=== PATIENT | male | born 1975 | race Caucasian/White ===

== ENCOUNTER 2017-10-07 13:19 | Emergency (ER) | payer MEDICARE, MEDICAID ==
[~2017-10-07] VITALS: Ht 177.8 cm; Wt 66.0 kg
[~2017-10-07 13:19] MED LIST: ARIP10TA17 PO; CHOL100046 PO; HALO5TAB PO; NICO-687 TD
[2017-10-07 13:30] VITALS: BP 137/83
== END 2017-10-07 16:00 | disposition left against medical advice (07) ==
LOC: ER 13:20
DX: M79.644 Pain in right finger(s) (principal); Z53.21 Procedure and treatment not carried out due to patient leaving prior to being seen by health care provider

== ENCOUNTER 2017-11-06 18:26 | Emergency (ER) | payer MEDICARE, MEDICAID ==
[~2017-11-06] VITALS: Ht 177.8 cm; Wt 77.3 kg
[~2017-11-06 18:26] MED LIST changes: +IBUP-1984 PO
[2017-11-06] MEDS ORDERED: OLANZapine **IM** 10 mg inj. IM ONE (23:00)
[2017-11-06 23:47] LABS: BASOPHILS % (AUTO) 0.1 % (0-1); EOSINOPHILS # (AUTO) 0.2 X10'3 (0-0.9); HEMATOCRIT 44.9 % (42.0-52.0); HEMOGLOBIN 15.4 g/dl (14.0-17.9); MEAN CORPUSCULAR HEMOGLOBIN 32.3 PG (27.0-31.0); MEAN CORPUSCULAR HGB CONC 34.3 % (33.0-36.5); MEAN CORPUSCULAR VOLUME 94.2 FL (78-98); MEAN PLATELET VOLUME 6.4 FL (7.4-10.4); MONOCYTES % (AUTO) 9.1 % (2-12); NEUTROPHILS # (AUTO) 5.5 X10'3 (1.8-7.7); NEUTROPHILS % (AUTO) 51.8 % (42-75); PLATELET COUNT 363 X10'3 (140-440); RED BLOOD COUNT 4.76 X10'6 (4.70-6.10); RED CELL DISTRIBUTION WIDTH 13.2 % (11.5-14.5); WHITE BLOOD COUNT 10.7 X10'3 (4.5-11.0)
[2017-11-07 00:04] LABS: ALANINE AMINOTRANSFERASE 48 U/L (12-78); ALBUMIN 3.7 G/DL (3.4-5.0); ALKALINE PHOSPHATASE 77 IU/L (46-116); ANION GAP 8 (8-16); ASPARTATE AMINO TRANSFERASE 20 U/L (10-37); BILIRUBIN,TOTAL 0.4 MG/DL (0.1-1.0); BLOOD UREA NITROGEN 12 MG/DL (7-18); BUN/CREATININE RATIO 15.6 (5.4-32.0); CHLORIDE 106 MMOL/L (99-107); CREATININE 0.77 MG/DL (0.60-1.10); GLUCOSE 144 MG/DL (70-104); POTASSIUM 3.1 MMOL/L (3.5-5.1); SODIUM 144 MMOL/L (135-145); TOTAL CARBON DIOXIDE 29.6 MMOL/L (24-32); TOTAL PROTEIN 7.3 G/DL (6.4-8.2); eGFR > 90 ML/MIN
[2017-11-07 00:16] LABS: ETHANOL < 0.010 GM/DL (0.0-0.010)
[2017-11-07] MEDS ORDERED: potassium Cl 20 mEq SR tablet PO ONE (01:15)
[2017-11-07 02:02] VITALS: BP 134/108
== END 2017-11-07 02:03 ==
LOC: ER 18:27
DX: S06.9X9A Unspecified intracranial injury with loss of consciousness of unspecified duration, initial encounter (principal); F29 Unspecified psychosis not due to a substance or known physiological condition; G89.29 Other chronic pain; F41.9 Anxiety disorder, unspecified; F31.9 Bipolar disorder, unspecified; F20.9 Schizophrenia, unspecified; Z86.19 Personal history of other infectious and parasitic diseases; F12.10 Cannabis abuse, uncomplicated; Z88.0 Allergy status to penicillin; Z88.8 Allergy status to other drugs, medicaments and biological substances; Z79.899 Other long term (current) drug therapy; Z56.0 Unemployment, unspecified; W22.8XXA Striking against or struck by other objects, initial encounter; Y93.89 Activity, other specified; Y92.89 Other specified places as the place of occurrence of the external cause; Y99.8 Other external cause status
CPT/HCPCS: 36415; 70450; 80053; 80320; 85025; 96372; 99285

== ENCOUNTER 2017-11-07 00:30 | Inpatient (IN) | payer MEDICARE, MEDICAID ==
[~2017-11-07] VITALS: Ht 177.8 cm; Wt 77.3 kg
[2017-11-07] MEDS ORDERED: haloperidol 5mg tablet PO ONE (02:05)
[2017-11-07] MEDS: LORazepam 1 MG tablet PO PRN ×3 (02:14→18:44)
[2017-11-07] MEDS ORDERED: haloperidol lactate 5mg/ml inj IM PRN (02:25)
[2017-11-07 02:30] VITALS: BP 129/81
[2017-11-07 08:00] VITALS: BP 92/74
[2017-11-07] MEDS ORDERED: haloperidol 5mg tablet PO PRN (10:45)
[2017-11-07] MEDS ORDERED: haloperidol 1mg tablet PO ONE (10:45)
[2017-11-07 11:06] LABS: CLARITY,URINE SLIGHTLY CLOUDY (Clear); COLOR,URINE YELLOW (Yellow); GLUCOSE, URINE NEGATIVE (Neg); KETONES,URINE NEGATIVE (Neg); LEUKOCYTE ESTERASE ,URINE NEGATIVE (Neg); NITRITES, URINE NEGATIVE (Neg); OCCULT BLOOD,URINE NEGATIVE (Neg); PH,URINE 6.5 (4.8-8.0); PROTEIN,URINE NEGATIVE (Neg)
[2017-11-07 11:11] LABS: UA COLLECTION TYPE CLN CATCH MIDSTREAM
[2017-11-07 11:12] LABS: AMORPHOUS URATES 2+; BACTERIA,URINE NONE SEEN /HPF (Neg); MUCUS STRANDS NONE SEEN /LPF (Neg); RBC,URINE NONE SEEN /HPF (0-2); SQUAMOUS EPITHELIAL CELL,UR NONE SEEN /LPF (FEW); WBC,URINE NONE SEEN /HPF (0-4)
[2017-11-07 11:21] LABS: URINE AMPHETAMINE SCREEN NEGATIVE (Neg); URINE BARBITUATE SCREEN NEGATIVE (Neg); URINE BENZODIAZEPINES SCREEN NEGATIVE (Neg); URINE CANNABINOID SCREEN POSITIVE (Neg); URINE COCAINE SCREEN NEGATIVE (Neg); URINE METHADONE SCREEN NEGATIVE (Neg); URINE OPIATE SCREEN NEGATIVE (Neg); URINE PHENCYCLIDINE SCREEN NEGATIVE (Neg)
[2017-11-07] MEDS ORDERED: haloperidol 1mg tablet PO SCH ×2 (13:00→20:00)
[2017-11-07] MEDS: potassium chloride 10mEq ER tablet PO SCH ×3 (16:10→17:46)
[2017-11-07 19:21] VITALS: BP 110/78
[2017-11-07] MEDS: haloperidol 5mg tablet PO SCH (20:06)
[2017-11-08] MEDS: nicotine 21mg patch - 24 hr TD SCH (07:43)
[2017-11-08] MEDS: haloperidol 5mg tablet PO SCH ×3 (07:44→20:07)
[2017-11-08 07:49] LABS: HEMOGLOBIN A1C 5.5 % (4.5-6.2)
[2017-11-08 07:56] LABS: CHOL/HDL RATIO 1.8 (0.00-4.99); CHOLESTEROL 94 MG/DL (0-200); HDL CHOLESTEROL 53 MG/DL (35-60); LDL CHOLESTEROL 34 MG/DL (50-100); TRIGLYCERIDES 60 MG/DL (20-135)
[2017-11-08 08:00] VITALS: BP 127/80
[2017-11-08] MEDS: potassium chloride 10mEq ER tablet PO SCH ×2 (08:02→17:30)
[2017-11-08] MEDS ORDERED: acetaminophen 325mg tablet PO PRN (08:20)
[2017-11-08] MEDS: LORazepam 1 MG tablet PO PRN (10:13)
[2017-11-08 19:38] LABS: ALANINE AMINOTRANSFERASE 46 U/L (12-78); ALBUMIN 3.4 G/DL (3.4-5.0); ALKALINE PHOSPHATASE 77 IU/L (46-116); ANION GAP 7 (8-16); ASPARTATE AMINO TRANSFERASE 21 U/L (10-37); BILIRUBIN,TOTAL 0.3 MG/DL (0.1-1.0); BLOOD UREA NITROGEN 17 MG/DL (7-18); BUN/CREATININE RATIO 15.2 (5.4-32.0); CHLORIDE 104 MMOL/L (99-107); CREATININE 1.12 MG/DL (0.60-1.10); GLUCOSE 81 MG/DL (70-104); POTASSIUM 4.6 MMOL/L (3.5-5.1); SODIUM 140 MMOL/L (135-145); TOTAL CARBON DIOXIDE 29.5 MMOL/L (24-32); TOTAL PROTEIN 6.8 G/DL (6.4-8.2); eGFR 72 ML/MIN
[2017-11-08 19:46] VITALS: BP 111/67
[2017-11-09] MEDS: haloperidol 5mg tablet PO SCH ×3 (07:48→20:10)
[2017-11-09] MEDS: nicotine 21mg patch - 24 hr TD SCH (07:50)
[2017-11-09 08:00] VITALS: BP 132/92
[2017-11-09] MEDS: potassium chloride 10mEq ER tablet PO SCH ×2 (08:30→17:30)
[2017-11-09 20:15] VITALS: BP 131/91
[2017-11-10 07:40] VITALS: BP 113/81
[2017-11-10] MEDS: potassium chloride 10mEq ER tablet PO SCH (08:30)
[2017-11-10] MEDS: haloperidol 5mg tablet PO SCH ×3 (08:32→20:35)
[2017-11-10] MEDS: nicotine 21mg patch - 24 hr TD SCH (08:33)
[2017-11-10 18:55] VITALS: BP 130/90
[2017-11-10 20:00] VITALS: BP 130/90
[2017-11-10 23:14] VITALS: BP 145/86
[2017-11-11 07:09] VITALS: BP 125/82
[2017-11-11] MEDS: haloperidol 5mg tablet PO SCH ×2 (08:32→12:37)
[2017-11-11] MEDS: nicotine 21mg patch - 24 hr TD SCH (08:35)
[2017-11-11] MEDS ORDERED: HALO5TAB PO (13:21)
[2017-11-11] MEDS ORDERED: CHOL100046 PO (13:21)
== END 2017-11-11 14:30 | disposition home or self-care (01) | DRG 885 ==
LOC: ADULT MH 00:30
PROVIDERS: ADMIT Psychiatry & Neurology Psychiatry; ATTEND Psychiatry & Neurology Psychiatry
DX: F23 Brief psychotic disorder (principal); S09.90XA Unspecified injury of head, initial encounter; R45.851 Suicidal ideations; E87.6 Hypokalemia; B19.20 Unspecified viral hepatitis C without hepatic coma; F41.9 Anxiety disorder, unspecified; X58.XXXA Exposure to other specified factors, initial encounter; F12.90 Cannabis use, unspecified, uncomplicated; F17.210 Nicotine dependence, cigarettes, uncomplicated; F31.9 Bipolar disorder, unspecified; Z91.19 Patient's noncompliance with other medical treatment and regimen; Z88.1 Allergy status to other antibiotic agents; Z88.0 Allergy status to penicillin; Z88.8 Allergy status to other drugs, medicaments and biological substances; Z79.899 Other long term (current) drug therapy
CPT/HCPCS: 36415; 80053; 80061; 80305; 81001; 83036; 83880; 87070; 99285; 99406; J1630

== ENCOUNTER 2018-01-11 10:50 | Emergency (ER) | payer MEDICARE, MEDICAID ==
[~2018-01-11] VITALS: Ht 177.8 cm; Wt 64.8 kg
[~2018-01-11 10:50] MED LIST changes: -ARIP10TA17 PO; -IBUP-1984 PO; -NICO-687 TD
[2018-01-11 10:51] VITALS: BP 141/100
[2018-01-11] MEDS ORDERED: LORazepam 1 MG tablet PO ONE (11:35)
== END 2018-01-11 12:31 | disposition home or self-care (01) ==
LOC: ER 10:50
DX: F32.9 Major depressive disorder, single episode, unspecified (principal); G89.29 Other chronic pain; F20.9 Schizophrenia, unspecified; F41.9 Anxiety disorder, unspecified; F12.90 Cannabis use, unspecified, uncomplicated; Z88.0 Allergy status to penicillin; Z56.0 Unemployment, unspecified; Z91.14 Patient's other noncompliance with medication regimen
CPT/HCPCS: 99283; 99284

== ENCOUNTER 2018-12-29 07:25 | Emergency (ER) | payer MEDICARE, MEDICAID ==
[~2018-12-29] VITALS: Ht 177.8 cm; Wt 75.0 kg
[2018-12-29 07:46] VITALS: BP 145/87
--- NOTE | 2018-12-29 08:01 | NUR ---
called charmaine case# [id number]
--- NOTE | 2018-12-29 08:25 | NUR ---
PT GIVEN FOOD BAG, ADDITIONAL JUICE, YOGURT, OK TO FEE AFTER NOTIFY JOVANI SPIVEY BG 74
[2018-12-29 08:34] LABS: BASOPHILS # (AUTO) 0.1 X10'3 (0-0.2); BASOPHILS % (AUTO) 0.7 % (0-1); EOSINOPHILS # (AUTO) 0.5 X10'3 (0-0.9); EOSINOPHILS % (AUTO) 4.7 % (0-6); HEMATOCRIT 40.7 % (42.0-52.0); HEMOGLOBIN 13.6 g/dl (14.0-17.9); LYMPHOCYTES # (AUTO) 2.4 X10'3 (1.1-4.8); LYMPHOCYTES % (AUTO) 21.1 % (21-51); MEAN CORPUSCULAR HEMOGLOBIN 30.9 PG (27.0-31.0); MEAN CORPUSCULAR HGB CONC 33.5 g/dL (33.0-36.5); MEAN CORPUSCULAR VOLUME 92.4 FL (78-98); MEAN PLATELET VOLUME 6.7 FL (7.4-10.4); MONOCYTES # (AUTO) 1.4 X10'3 (0-0.9); MONOCYTES % (AUTO) 12.2 % (2-12); NEUTROPHILS # (AUTO) 7.1 X10'3 (1.8-7.7); NEUTROPHILS % (AUTO) 61.3 % (42-75); PLATELET COUNT 422 X10'3 (140-440); RED CELL DISTRIBUTION WIDTH 14.3 % (11.5-14.5); WHITE BLOOD COUNT 11.6 X10'3 (4.5-11.0)
[2018-12-29 08:49] LABS: ALANINE AMINOTRANSFERASE 37 U/L (12-78); ALBUMIN 3.3 G/DL (3.4-5.0); ALBUMIN/GLOBULIN RATIO 0.9 (1.1-1.5); ALKALINE PHOSPHATASE 90 IU/L (46-116); ANION GAP 9 (8-16); ASPARTATE AMINO TRANSFERASE 25 U/L (10-37); BILIRUBIN,TOTAL 0.2 MG/DL (0.1-1.0); BLOOD UREA NITROGEN 12 MG/DL (7-18); BUN/CREATININE RATIO 18.2 (5.4-32.0); CALCIUM 8.4 MG/DL (8.5-10.1); CHLORIDE 108 MMOL/L (99-107); CREATININE 0.66 MG/DL (0.60-1.10); GLUCOSE 80 MG/DL (70-104); POTASSIUM 3.6 MMOL/L (3.5-5.1); SODIUM 143 MMOL/L (135-145); TOTAL CARBON DIOXIDE 26.4 MMOL/L (24-32); TOTAL PROTEIN 6.9 G/DL (6.4-8.2); eGFR > 90 ML/MIN
[2018-12-29 09:40] LABS: URINE AMPHETAMINE SCREEN NEGATIVE (Neg); URINE BARBITUATE SCREEN NEGATIVE (Neg); URINE BENZODIAZEPINES SCREEN NEGATIVE (Neg); URINE CANNABINOID SCREEN POSITIVE (Neg); URINE COCAINE SCREEN NEGATIVE (Neg); URINE METHADONE SCREEN NEGATIVE (Neg); URINE OPIATE SCREEN NEGATIVE (Neg); URINE PHENCYCLIDINE SCREEN NEGATIVE (Neg)
[2018-12-29] MEDS ORDERED: IBUP-1985 PO (09:51)
[2018-12-29] MEDS ORDERED: CEPH-572 PO (09:51)
--- NOTE | 2018-12-29 10:20 | NUR ---
CALLED [facility] KIM BEDSIDE DELIVERY TO FILL TWO PRESCRIPTIONS FOR DISCHARGE PT IS HOMELESS. PT ALREADY PROVIDED FOOD BAG, PT HAS APPROPRIATE CLOTHING FOR WEATHER.
--- NOTE | 2018-12-29 10:26 | NUR ---
BRENNA PICKED UP PRESCRIPTIONS TO FILL FOR PT.
== END 2018-12-29 11:22 | disposition home or self-care (01) ==
LOC: ER 07:25
DX: S02.31XA Fracture of orbital floor, right side, initial encounter for closed fracture (principal); S02.2XXA Fracture of nasal bones, initial encounter for closed fracture; S05.11XA Contusion of eyeball and orbital tissues, right eye, initial encounter; G89.29 Other chronic pain; F12.90 Cannabis use, unspecified, uncomplicated; F17.210 Nicotine dependence, cigarettes, uncomplicated; Z88.0 Allergy status to penicillin; Z88.1 Allergy status to other antibiotic agents; Z88.4 Allergy status to anesthetic agent; Z88.8 Allergy status to other drugs, medicaments and biological substances; Z79.2 Long term (current) use of antibiotics; Z79.899 Other long term (current) drug therapy; Z56.0 Unemployment, unspecified; Z59.0 Homelessness; Z87.440 Personal history of urinary (tract) infections; Z86.19 Personal history of other infectious and parasitic diseases; Z90.49 Acquired absence of other specified parts of digestive tract; Y08.89XA Assault by other specified means, initial encounter; Y93.89 Activity, other specified; Y92.89 Other specified places as the place of occurrence of the external cause; Y99.8 Other external cause status
CPT/HCPCS: 36415; 70450; 70486; 80053; 80305; 82948; 85025; 99284

== ENCOUNTER 2019-01-24 09:26 | Inpatient (IN) | payer MEDICARE, MEDICAID ==
[~2019-01-24] VITALS: Ht 177.8 cm; Wt 62.6 kg
[~2019-01-24 09:26] MED LIST changes: +IBUP-1985 PO
--- NOTE | 2019-01-24 09:30 | NUR ---
Admission Note: Patient is a 43 year old male admitted to [facility] due to psychosis Patient cannot formulate a safety plan. Patient has been homeless x 6 months with HX of Bipolar d/o and not taking medication. Patient taken to [facility] by his mother. Patient is acting bizarre and often not making sense. Patient denies SI/HI/AVH but appears to be responding to internal stimuli. When RN asked patient about his father patient started talking about "loaves and fishes". 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 Patient was treated at [facility] for lice with permethrin cream. Patient was given Ivermectin in [facility] with an additional dose to be given in 7 days. Patient has HX of Multiple compression fractures in his back. A mild pleural effustion and parechyen scarring in left lower lung lobe with cyst.
[2019-01-24] MEDS ORDERED: LORazepam 1 MG tablet PO PRN ×2 (09:45→17:25)
[2019-01-24] MEDS ORDERED: hydrOXYzine 25 MG tablet PO PRN (09:45)
[2019-01-24] MEDS ORDERED: loperamide 2mg capsule PO PRN (09:45)
[2019-01-24] MEDS ORDERED: acetaminophen 325mg tablet PO PRN (09:45)
[2019-01-24] MEDS ORDERED: Ivermectin 3mg tablet PO SCH (10:25)
[2019-01-24] MEDS ORDERED: haldol PO (10:59)
[2019-01-24] MEDS: Ivermectin 3mg tablet PO SCH (11:22)
[2019-01-24] MEDS: nicotine 21mg patch - 24 hr TD SCH (12:45)
--- NOTE | 2019-01-24 13:39 | NUR ---
Malnutrition consult. Patient weighed 68 kg on standing scale last 01/11/18, current weight is 62.6 kg on standing scale, a 12 lb (8%) loss in one year. Pending PO documentation. Per malnutrition risk screening patient was unable to verbalize diet at home. No edema. BMI is 19.8; will continue to follow and monitor PO Intake for assessment. Addendum: 01/24/19 at [address] Amended: Links added.
--- NOTE | 2019-01-24 16:28 | NUR ---
Nursing Progress Note: Legal hold: 5150 expires 01/27 @ 2818 Client on involuntary status for GD Report received from nurse with use of SBAR: Srinivasa, xerox machine mechanic Why are they here: Patient transferred from [facility] for psychosis. Patient has long HX of Bipolar d/o. Patient has been homeless for 6 months and noncompliant with medication. Patient is very thin and responding to internal stimuli. Patient is asked a question and patient talks about smiley faces, loaves and fishes, distrust, [place] and [place]. Patient has flight of ideas and acting bizarre. Patient is oriented to self and place but not date. Patient is unable to formulate a plan for food, clothing and group home. Patient's mother took patient to [facility]. Patient is a poor historian. Patient has a HX of compression fractures in his back, small pleural effusion to LL lung, and Increased platelets. Patient was treated with permetherine cream for lice yesterday at [facility]. Patient received Ivermectin today at [facility] with an additional dose ordered for 7 days. RN found lice and nits in patients scalp. No lice seen in groin area after thorough inspection by RN and Tech. Assessment What has happened this shift: Patient is in his room until tomorrow due to nits and lice in his scalp per Miko Her, infection control. Patient given snacks and meals in his room. Patient found several times in his room pacing and talking to himself. Patient has flight of ideas but is obeying commands and staying in his room. Patient did take a nap this afternoon. S/I, H/I: Patient denies A/VH: Patient denies but patient is responding to internal stimuli Sleep: took a nap ADL's: Independent Group attendance: No groups Were meds taken: none ordered Any med S/E: None reported or observed Mental Status Exam Appearance: took shower on arrival so clean and neat Eye contact: Poor, possible lazy eye Behavior: calm and obeys commands Speech: flight of ideas Mood: anxious at times Affect: flat Thought process: Disorganized, flight of ideas Thought Content: Unable to properly assess Cognition: Alert and confused. Insight: Poor Judgment: Poor Interventions PRN's: none Therapeutic interventions: 1:1 communication to include active listening and positive feedback, building therapeutic rapport. Maintained a safe and therapeutic environment, provided medication education and administration, q15 minute safety checks. Restraints/seclusion/emergency medication: N/A Justification of Continued Inpatient Treatment: Pt on 5150 for GD. Pt requires therapeutic intervention and medication management. Pt has no means for providing basic needs, food, group home and healthcare
[2019-01-24] MEDS ORDERED: haloperidol 5mg tablet PO PRN (17:25)
[2019-01-24] MEDS ORDERED: diphenhydrAMINE 25mg capsule PO PRN (17:25)
[2019-01-24 19:55] VITALS: BP 121/89
[2019-01-24] MEDS ORDERED: HALDOL 5 MG PO SCH (20:00)
[2019-01-24] MEDS: haloperidol 5mg tablet PO SCH (20:08)
[2019-01-24] MEDS: traZODone 50mg tablet PO SCH (20:08)
[2019-01-24] MEDS: diphenhydrAMINE 25mg capsule PO SCH (20:08)
--- NOTE | 2019-01-25 00:58 | NUR ---
Nursing Progress Note: Legal hold: 5150 expires 01/27 @ 1315 Client on involuntary status for GD Report received from nurse with use of SBAR: Srinivasa, compliance engineer Why are they here: Patient transferred from [facility] for psychosis. Patient has long HX of Bipolar d/o. Patient has been homeless for 6 months and noncompliant with medication. Patient is very thin and responding to internal stimuli. Patient is asked a question and patient talks about smiley faces, loaves and fishes, distrust, [place] and [place]. Patient has flight of ideas and acting bizarre. Patient is oriented to self and place but not date. Patient is unable to formulate a plan for food, clothing and penitentiary. Patient's mother took patient to [facility]. Patient is a poor historian. Patient has a HX of compression fractures in his back, small pleural effusion to LL lung, and Increased platelets. Patient was treated with permetherine cream for lice yesterday at [facility]. Patient received Ivermectin today at [facility] with an additional dose ordered for 7 days. RN found lice and nits in patients scalp. No lice seen in groin area after thorough inspection by RN and Tech. Assessment What has happened this shift: Patient is compliant staying in room. Not clear if pt understands why he is being asked to stay in room. Patient given snacks and meals in his room. Pt encouraged to eat he is very thin. Patient has flight of ideas borders on word salad at time. He does not answer even simple questions in a logical way. "Talked about unicorns on his face." Pt compliant with medications. S/I, H/I: Patient denies A/VH: Patient denies but patient is responding to internal stimuli Sleep: sleeping at this time. ADL's: Independent Group attendance: No groups Were meds taken: yes Any med S/E: None reported or observed Mental Status Exam Appearance: took shower on arrival so clean and neat Eye contact: Poor, possible lazy eye Behavior: calm and obeys commands Speech: flight of ideas Mood: anxious at times Affect: flat Thought process: Disorganized, flight of ideas Thought Content: Flight of ideas Cognition: Alert and confused. Insight: Poor Judgment: Poor Interventions PRN's: none Therapeutic interventions: 1:1 communication to include active listening and positive feedback, building therapeutic rapport. Maintained a safe and therapeutic environment, provided medication education and administration, q15 minute safety checks. Restraints/seclusion/emergency medication: N/A Justification of Continued Inpatient Treatment: Pt on 5150 for GD. Pt requires therapeutic intervention and medication management. Pt has no means for providing basic needs, food, penitentiary and healthcare
[2019-01-25] MEDS: acetaminophen 325mg tablet PO PRN (06:19)
[2019-01-25 07:57] VITALS: BP 115/82
[2019-01-25] MEDS: diphenhydrAMINE 25mg capsule PO SCH ×2 (08:00→20:46)
[2019-01-25] MEDS: nicotine 21mg patch - 24 hr TD SCH (08:18)
[2019-01-25] MEDS: haloperidol 5mg tablet PO SCH ×2 (08:18→20:45)
[2019-01-25 10:51] LABS: CHOL/HDL RATIO 2.5 (0.00-4.99); CHOLESTEROL 82 MG/DL (0-200); HDL CHOLESTEROL 33 MG/DL (35-60); LDL CHOLESTEROL 43 MG/DL (50-100); TRIGLYCERIDES 77 MG/DL (20-135)
[2019-01-25 10:52] LABS: HEMOGLOBIN A1C 5.6 % (4.5-6.2)
--- NOTE | 2019-01-25 11:59 | NUR ---
f/u for malnutrition consult: Pt with documented 100% PO intake on regular diet meeting nutrient needs. Pt with no documented edema or decrease in muscle strength. Pt currently does not meet criteria for malnutrition. Will continue to follow. Malnutrition consult. Patient weighed 68 kg on standing scale last 01/11/18, current weight is 62.6 kg on standing scale, a 12 lb (8%) loss in one year. Pending PO documentation. Per malnutrition risk screening patient was unable to verbalize diet at home. No edema. BMI is 19.8; will continue to follow and monitor PO Intake for assessment. Addendum: 01/25/19 at [address] Amended: Links added.
--- NOTE | 2019-01-25 15:41 | NUR ---
Nursing Progress Note: Legal hold: 5150 expires 01/27 @ 2780 Client on involuntary status for GD Report received from nurse with use of SBAR: Srinivasa, gluer and wedger Why are they here: Patient transferred from [facility] for psychosis. Patient has long HX of Schizophrenia d/o. Patient has been homeless for 6 months and noncompliant with medication. Patient is very thin and responding to internal stimuli. Patient is asked a question and patient talks about smiley faces, loaves and fishes, distrust, [place] and [place]. Patient has flight of ideas and acting bizarre. Patient is oriented to self and place but not date. Patient is unable to formulate a plan for food, clothing and alf. Patient's mother took patient to [facility]. Patient is a poor historian. Patient has a HX of compression fractures in his back, small pleural effusion to LL lung, and Increased platelets. Patient was treated with permetherine cream for lice yesterday at [facility]. Patient received Ivermectin today at [facility] with an additional dose ordered for 7 days. RN found lice and nits in patients scalp. No lice seen in groin area after thorough inspection by RN and Tech. Assessment What has happened this shift: Patient asleep at change of shift and up soon after. RN advised patient that he is allowed to be out of his room. Patient started walking around to group room and TV room. Patient keeps to himself. At breakfast RN assisted patient in making meal selections for future meals. Patient was disorganized and would sometime answer appropriately and sometimes say something completely unrelated. RN made most of patient's selections for him. At the end patient suddenly got irritated and told RN "I'm not a 1 year old." Patient is isolates and still showing signs of responding to internal stimuli. Patient appears to be making a little more sense today. Patient did not go to groups. S/I, H/I: Patient denies A/VH: Patient denies but patient is responding to internal stimuli Sleep: 8 hours ADL's: Independent Group attendance: No groups Were meds taken: Haldol. pt refused Benadryl Any med S/E: None reported or observed Mental Status Exam Appearance: took shower on arrival so clean and neat Eye contact: Poor, possible lazy eye Behavior: calm and obeys commands Speech: flight of ideas Mood: anxious at times Affect: flat Thought process: Disorganized, flight of ideas Thought Content: Unable to properly assess Cognition: Alert and confused. Insight: Poor Judgment: Poor Interventions PRN's: none Therapeutic interventions: 1:1 communication to include active listening and positive feedback, building therapeutic rapport. Maintained a safe and therapeutic environment, provided medication education and administration, q15 minute safety checks. Restraints/seclusion/emergency medication: N/A Justification of Continued Inpatient Treatment: Pt on 5150 for GD. Pt requires therapeutic intervention and medication management. Pt has no means for providing basic needs, food, alf and healthcare
[2019-01-25] MEDS: traZODone 50mg tablet PO SCH (20:47)
[2019-01-25 20:48] VITALS: BP 117/66
--- NOTE | 2019-01-25 21:00 | NUR ---
Pt refused to have Nicotine patch removed for the night. Pt states he will have cigarette cravings if removed. Pt was educated on that is could effect his sleeping and/or give him nightmares
--- NOTE | 2019-01-25 22:42 | NUR ---
Strabismus left eye Addendum: 01/25/19 at 2243 by Tammie Abad RN Amended: Links added.
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
[2019-01-26] MEDS: haloperidol 5mg tablet PO SCH ×2 (07:48→21:24)
[2019-01-26] MEDS: nicotine 21mg patch - 24 hr TD SCH (07:49)
[2019-01-26 08:00] VITALS: BP 112/80
[2019-01-26] MEDS: diphenhydrAMINE 25mg capsule PO SCH ×2 (08:00→21:24)
--- NOTE | 2019-01-26 15:15 | NUR ---
Nursing Progress Note: Legal hold: 5150 expires 01/27 @ 7270 Client on involuntary status for GD Report received from nurse with use of SBAR: Susan, operator cavity pump Why are they here: Patient transferred from [facility] for psychosis. Patient has long HX of Schizophrenia d/o. Patient has been homeless for 6 months and noncompliant with medication. Patient is very thin and responding to internal stimuli. Patient is asked a question and patient talks about smiley faces, loaves and fishes, distrust, [place] and [place]. Patient has flight of ideas and acting bizarre. Patient is oriented to self and place but not date. Patient is unable to formulate a plan for food, clothing and halfway. Patient's mother took patient to [facility]. Patient is a poor historian. Patient has a HX of compression fractures in his back, small pleural effusion to LL lung, and Increased platelets. Patient was treated with permetherine cream for lice yesterday at [facility]. Patient received Ivermectin today at [facility] with an additional dose ordered for 7 days. RN found lice and nits in patients scalp. No lice seen in groin area after thorough inspection by RN and Tech. Assessment What has happened this shift: Patient asleep at change of shift up just before breakfast. Patient gets a little agitated when asked questions and is disorganized. Patient keeps to himself. Patient is isolates and still showing signs of responding to internal stimuli. Patient is dressed in his own clothes. Patient went to morning group S/I, H/I: Patient denies A/VH: Patient denies but patient is responding to internal stimuli Sleep: 8 hours ADL's: Independent Group attendance: morning group Were meds taken: Haldol. pt refused Benadryl Any med S/E: None reported or observed Mental Status Exam Appearance: took shower on arrival so clean and neat Eye contact: Poor, possible lazy eye Behavior: calm and obeys commands Speech: flight of ideas Mood: anxious at times Affect: flat Thought process: Disorganized, flight of ideas Thought Content: Unable to properly assess Cognition: Alert and confused. Insight: Poor Judgment: Poor Interventions PRN's: none Therapeutic interventions: 1:1 communication to include active listening and positive feedback, building therapeutic rapport. Maintained a safe and therapeutic environment, provided medication education and administration, q15 minute safety checks. Restraints/seclusion/emergency medication: N/A Justification of Continued Inpatient Treatment: Pt on 5150 for GD. Pt requires therapeutic intervention and medication management. Pt has no means for providing basic needs, food, halfway and healthcare
[2019-01-26 19:00] VITALS: BP 111/79
[2019-01-26] MEDS: acetaminophen 325mg tablet PO PRN (19:17)
[2019-01-26] MEDS: traZODone 50mg tablet PO SCH (21:28)
--- NOTE | 2019-01-27 01:55 | NUR ---
Nursing Progress Note: Legal hold: 5150 expires 01/27 @ 2386 Client on involuntary status for GD Report received from nurse with use of SBAR: ONESIMO Huang Why are they here: Patient transferred from [facility] for psychosis. Patient has long HX of Schizophrenia d/o. Patient has been homeless for 6 months and noncompliant with medication. Patient is very thin and responding to internal stimuli. Patient is asked a question and patient talks about smiley faces, loaves and fishes, distrust, [place] and [place]. Patient has flight of ideas and acting bizarre. Patient is oriented to self and place but not date. Patient is unable to formulate a plan for food, clothing and custodial. Patient's mother took patient to [facility]. Patient is a poor historian. Patient has a HX of compression fractures in his back, small pleural effusion to LL lung, and Increased platelets. Patient was treated with Permetherine cream for lice yesterday at [facility]. Patient received Ivermectin today at [facility] with an additional dose ordered for 7 days. RN found lice and nits in patients scalp. No lice seen in groin area after thorough inspection by RN and Tech. Assessment What has happened this shift: Received patient sitting in T.V room. Patient wanted something to eat, stated he didnt get enough food for dinner. Pt was cooperative with the 1:1 assessment. Pt is unable to hold a thought, pt still very disorganized. Pt talked about Danilo [place] and how cough medicine and sleep aid reverses meth and keeps you from doing dumb things. I asked pt if he uses meth and he said on occasion. Pt made random thoughts about different people and then would laugh. At the same time pt denies any A/VH or SI. Pt doesnt feel he is depressed and reports his anxiety to be 4/10. Pt was medication compliant. Pt wanted to keep his nicotine patch on Exp possible side effects of patch during sleeping hours. 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 Reoriented to reality as needed. Maintained a safe and therapeutic environment, provided medication education and administration, q15 minute safety checks. Restraints/seclusion/emergency medication: N/A Justification of Continued Inpatient Treatment: Pt on 515 for GD. Pt requires therapeutic intervention and medication management. Pt has no means for providing basic needs, food, custodial and healthcare
[2019-01-27] MEDS: haloperidol 5mg tablet PO SCH ×2 (07:45→21:14)
[2019-01-27] MEDS: nicotine 21mg patch - 24 hr TD SCH (07:47)
[2019-01-27] MEDS: diphenhydrAMINE 25mg capsule PO SCH ×2 (07:49→20:00)
[2019-01-27 08:00] VITALS: BP 106/73
--- NOTE | 2019-01-27 16:01 | NUR ---
Nursing Progress Note: Legal hold: 5250 Client on involuntary status for GD Report received from nurse with use of SBAR: ONESIMO Pimentel Why are they here: Patient transferred from [facility] for psychosis. Patient has long HX of Schizophrenia d/o. Patient has been homeless for 6 months and noncompliant with medication. Patient is very thin and responding to internal stimuli. Patient is asked a question and patient talks about smiley faces, loaves and fishes, distrust, [place] and [place]. Patient has flight of ideas and acting bizarre. Patient is oriented to self and place but not date. Patient is unable to formulate a plan for food, clothing and snf. Patient's mother took patient to [facility]. Patient is a poor historian. Patient has a HX of compression fractures in his back, small pleural effusion to LL lung, and Increased platelets. Patient was treated with Permetherine cream for lice yesterday at [facility]. Patient received Ivermectin today at [facility] with an additional dose ordered for 7 days. RN found lice and nits in patients scalp. No lice seen in groin area after thorough inspection by RN and Tech. Assessment What has happened this shift: Pt up for breakfast in community room. Pt refused scheduled Benadryl, stated, "it makes me drowsy, I don't need it." Pt took his Haldol, was happy that it was a green pill. Pt stated that he needs to keep taking the green Haldols, not the white ones as "the white ones just get me high." Pt rated his depression at a 4/10, denied SI/HI/AH/VH, stated that only time he ever sees anything unusual is when he is on an acid trip. When asked pt why he was here, he replied that he went to the hospital because he had head lice. Pt asked if someone would come talk to him about housing, mentioned [employer] in [facility] then mentioned how he didn't like to have to take Invega shots. S/I, H/I: Pt denies A/VH: Patient denies Sleep: Pt stated he slept okay ADL's: Independent Group attendance: Yes Were meds taken: Yes but refused Benadryl Any med S/E: Pt states that Benadryl make him too drowsy Mental Status Exam Appearance: Clean, looks older than stated age Eye contact: Fair Behavior: Cooperative, isolative to self Speech: clear, audible Mood: Cooperative, calm Affect: Flat Thought process: linear, goal oriented Thought Content: Pt worried he may still have lice, focused on getting help with housing, only likes to take the green or blue Haldol pills, states he stopped taking his meds because the pharmacy gives him white Haldol pills. Cognition: A/O X 3 Insight: Poor Judgment: Poor Interventions PRN's: None Therapeutic interventions: 1:1 assessment, reality orientation, medication administration/education/monitoring, q15 minute safety checks. Restraints/seclusion/emergency medication: N/A Justification of Continued Inpatient Treatment: Pt is homeless, he has been off his medications, he needs medication adjustment and monitoring in a safe, therapeutic environment, he has no means for providing basic needs, food, snf and healthcare
[2019-01-27] MEDS: acetaminophen 325mg tablet PO PRN (18:43)
[2019-01-27] MEDS: traZODone 50mg tablet PO SCH (21:13)
--- NOTE | 2019-01-27 22:41 | NUR ---
Pt refused vital signs Addendum: 01/27/19 at 2244 by Tammie Abad RN Amended: Links added.
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
[2019-01-28 08:00] VITALS: BP 106/69
[2019-01-28] MEDS: diphenhydrAMINE 25mg capsule PO SCH ×2 (08:00→20:16)
[2019-01-28] MEDS: haloperidol 5mg tablet PO SCH ×2 (08:25→20:14)
[2019-01-28] MEDS: nicotine 21mg patch - 24 hr TD SCH (08:28)
--- NOTE | 2019-01-28 15:47 | NUR ---
Nursing Progress Note: Legal hold: 5250 expires 02/10 @ 0930 Client on involuntary status for GD Report received from nurse with use of SBAR: ONESIMO Pimentel Why are they here: Patient transferred from [facility] for psychosis. Patient has long HX of Schizophrenia d/o. Patient has been homeless for 6 months and noncompliant with medication. Patient is very thin and responding to internal stimuli. Patient is asked a question and patient talks about smiley faces, loaves and fishes, distrust, [place] and [place]. Patient has flight of ideas and acting bizarre. Patient is oriented to self and place but not date. Patient is unable to formulate a plan for food, clothing and usp. Patient's mother took patient to [facility]. Patient is a poor historian. Patient has a HX of compression fractures in his back, small pleural effusion to LL lung, and Increased platelets. Patient was treated with Permetherine cream for lice at [facility]. Patient received Ivermectin at [facility] with an additional dose ordered for 7 days. RN found lice and nits in patients scalp. No lice seen in groin area after thorough inspection by RN and Tech. Assessment What has happened this shift: Pt became agitated at breakfast today as the kitchen did not get his tray right. Sebastian him yelling/cussing loudly in hallway. PCT ordered him another tray and pt eventually calmed down. Pt is disorganized,pt was angry about his tray but verbalized, "you're not going to let me have a shave?!" Pt did not wish to shave. Pt is irritable and easily frustrated, continues to be depressed, denies all other symptoms though appears internally preoccupied at times. Pt refused Benadryl this morning, no longer wishes to take it in the morning, notified PA who D/c'd am dose. During morning med pass pt was angrily mumbling how people were being disrespectful by looking at his pockets instead of his eyes, stated to this nurse that I was doing it too. Reality orientation provided that this RN was not looking at his pockets and was in fact looking at his eyes. S/I, H/I: Pt denies A/VH: Pt denies Sleep: See sleep assessment notation ADL's: Independent Group attendance: Yes Were meds taken: Yes but refused Benadryl Any med S/E: None reported or observed Mental Status Exam Appearance: Clean, wearing green scrubs, looks older than stated age Eye contact: Fair, left eye laterally deviates Behavior: easily frustrated, suspicious, isolative to self Speech: Clear, low, mumbles at times Mood: irritable Affect: irritable, constricted Thought process: Disorganized, suspicious Thought Content: Pt believes people are being disrespectful by not looking him in the eye Cognition: A/O X 3 Insight: Poor Judgment: Poor Interventions PRN's: None Therapeutic interventions: 1:1 assessment, reality orientation, verbal de-escalation, active listening, medication administration/education/monitoring, encouragement to attend groups, Q15 minute safety checks. Restraints/seclusion/emergency medication: N/A Justification of Continued Inpatient Treatment: Pt requires therapeutic intervention and medication management. Pt is homeless and has no means for providing basic needs, food, usp and healthcare.
[2019-01-28] MEDS: acetaminophen 325mg tablet PO PRN (17:57)
[2019-01-28 19:00] VITALS: BP 127/87
[2019-01-28] MEDS: traZODone 50mg tablet PO SCH (20:14)
--- NOTE | 2019-01-28 22:59 | NUR ---
Nursing Progress Note: Legal hold: 5250 expires 02/10 @ 0930 Client on involuntary status for GD Report received from nurse with use of SBAR: ONESIMO Huang Why are they here: Patient transferred from [facility] for psychosis. Patient has long HX of Schizophrenia d/o. Patient has been homeless for 6 months and noncompliant with medication. Patient is very thin and responding to internal stimuli. Patient is asked a question and patient talks about smiley faces, loaves and fishes, distrust, [place] and [place]. Patient has flight of ideas and acting bizarre. Patient is oriented to self and place but not date. Patient is unable to formulate a plan for food, clothing and intermediate. Patient's mother took patient to [facility]. Patient is a poor historian. Patient has a HX of compression fractures in his back, small pleural effusion to LL lung, and Increased platelets. Patient was treated with Permetherine cream for lice yesterday at [facility]. Patient received Ivermectin today at [facility] with an additional dose ordered for 7 days. RN found lice and nits in patients scalp. No lice seen in groin area after thorough inspection by RN and Tech. Assessment What has happened this shift: The patient was in his room sleeping at shift change. He was later woken for 1:1 assessment and med pass. He mentions family that he appears to be angry with, but does not elaborate. The patient has poor eye contact and makes delusional statements. He does state that he's here because of his mother. The patient denies SI, AV/H, but continues to make delusional statements, and does not say anything meaningful. The patient took his HS meds minus the Benadryl, "I don't need that." He went to group room for a snack, then back to bed. S/I, H/I: Denies A/VH: Denies Sleep: "good" ADL's: Independent Group attendance: No groups at night. Were meds taken: Yes, except for Benadryl. Any med S/E: None reported or observed Mental Status Exam Appearance: Clean, wearing green scrubs, looks older than stated age Eye contact: Poor Behavior: Cooperative, isolative. Speech: Clear Mood: Cooperative, isolates to self. Affect: Flat Thought process: Disorganized Thought Content: Perseverates about discharge to [facility]. Cognition: Alert Insight: Poor Judgment: Poor Interventions PRN's: Therapeutic interventions: 1:1 communication to include active listening and positive feedback, building therapeutic rapport. Reoriented to reality as needed. Maintained a safe and therapeutic environment, provided medication education and administration, q15 minute safety checks. Restraints/seclusion/emergency medication: N/A Justification of Continued Inpatient Treatment: Pt requires therapeutic intervention and medication management. Pt is homeless and has no means for providing basic needs, food, intermediate and healthcare.
[2019-01-29 08:00] VITALS: BP 108/73
[2019-01-29] MEDS: haloperidol 5mg tablet PO SCH ×2 (08:39→20:19)
[2019-01-29] MEDS: nicotine 21mg patch - 24 hr TD SCH (08:40)
--- NOTE | 2019-01-29 15:50 | NUR ---
Nursing Progress Note: Legal hold: 5250 expires 02/10 @ 0930 Client on involuntary status for GD Report received from nurse with use of LATISHA and Benjamin ANGULO Why are they here: Patient transferred from [facility] for psychosis. Patient has long HX of Schizophrenia d/o. Patient has been homeless for 6 months and noncompliant with medication. Patient is very thin and responding to internal stimuli. Patient is asked a question and patient talks about smiley faces, loaves and fishes, distrust, [place] and [place]. Patient has flight of ideas and acting bizarre. Patient is oriented to self and place but not date. Patient is unable to formulate a plan for food, clothing and custodial. Patient's mother took patient to [facility]. Patient is a poor historian. Patient has a HX of compression fractures in his back, small pleural effusion to LL lung, and Increased platelets. Patient was treated with Permetherine cream for lice at [facility]. Patient received Ivermectin at [facility] with an additional dose ordered for 7 days. RN found lice and nits in patients scalp. No lice seen in groin area after thorough inspection by RN and Tech. Assessment What has happened this shift: Received pt in bed sleeping with normal respirations and in no distress. C/O still being hungry after breakfast and had a snack. Seems to be easily agitated by acceptable behavior of both staff and other clients, but is able to be redirected. Pt wanted to shave and was allowed to do so while [employer] observed. Pt is irritable and easily frustrated, continues to be depressed, denies all other symptoms though appears internally preoccupied at times. Reports the mission as not being an option for him and wants to go to [place] and thinks parole will let that happen. [place] better after a shave. S/I, H/I: Pt denies A/VH: Pt denies Sleep: 8 hrs last night ADL's: Independent Group attendance: Yes Were meds taken: Yes Any med S/E: None reported or observed Mental Status Exam Appearance: Clean, wearing green scrubs, looks older than stated age Eye contact: Fair, left eye laterally deviates Behavior: easily frustrated, suspicious, isolative to self Speech: Clear, low, mumbles at times Mood: irritable Affect: irritable, constricted Thought process: Disorganized, suspicious Thought Content: Pt believes people are being disrespectful by not looking him in the eye Cognition: A/O X 3 Insight: Poor Judgment: Poor Interventions PRN's: None Therapeutic interventions: 1:1 assessment, reality orientation, verbal de-escalation, active listening, medication administration/education/monitoring, encouragement to attend groups, Q15 minute safety checks. Restraints/seclusion/emergency medication: N/A Justification of Continued Inpatient Treatment: Pt requires therapeutic intervention and medication management. Pt is homeless and has no means for providing basic needs, food, custodial and healthcare.
[2019-01-29] MEDS: acetaminophen 325mg tablet PO PRN (19:03)
[2019-01-29 19:53] VITALS: BP 130/72
[2019-01-29] MEDS: traZODone 50mg tablet PO SCH (20:19)
[2019-01-29] MEDS: diphenhydrAMINE 25mg capsule PO SCH (20:37)
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
[2019-01-30] MEDS: nicotine 21mg patch - 24 hr TD SCH (07:36)
[2019-01-30] MEDS: haloperidol 5mg tablet PO SCH ×2 (07:36→20:36)
[2019-01-30 08:00] VITALS: BP 159/88
--- NOTE | 2019-01-30 11:01 | NUR ---
1:1 DISCHARGE PLANNING SW made TC to patient's mother at [phone], to confirm pt discharge planning. Pt's mother was unable to provide SW w/ pt's sister's phone number, however agreed to contact her via [employer]. SW requested confirmation of whether mother could have pt stay w/ her. Mother reports she cannot have pt stay w/ her due to her currently renting a room from a bachelor. DAVIDA Sapp
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
[2019-01-30] MEDS ORDERED: HALO5TAB PO (18:42)
[2019-01-30] MEDS ORDERED: TRAZ-218 PO (18:42)
[2019-01-30 20:00] VITALS: BP 116/78
[2019-01-30] MEDS: traZODone 50mg tablet PO SCH (20:36)
[2019-01-30] MEDS: diphenhydrAMINE 25mg capsule PO SCH (21:00)
--- NOTE | 2019-01-30 21:44 | NUR ---
Nursing Progress Note: Legal hold: 5250 expires 02/10 @ 0930 Client on involuntary status for GD Report received from nurse with use of LATISHA and ADELE Huang Why are they here: Patient transferred from [facility] for psychosis. Patient has long HX of Schizophrenia d/o. Patient has been homeless for 6 months and noncompliant with medication. Patient is very thin and responding to internal stimuli. Patient is asked a question and patient talks about smiley faces, loaves and fishes, distrust, [place] and [place]. Patient has flight of ideas and acting bizarre. Patient is oriented to self and place but not date. Patient is unable to formulate a plan for food, clothing and halfway. Patient's mother took patient to [facility]. Patient is a poor historian. Patient has a HX of compression fractures in his back, small pleural effusion to LL lung, and Increased platelets. Patient was treated with Permetherine cream for lice at [facility]. Patient received Ivermectin at [facility] with an additional dose ordered for 7 days. RN found lice and nits in patients scalp. No lice seen in groin area after thorough inspection by RN and Tech. Assessment What happened this shift: Pt was in his room laying down at change of shift. 1:1 assessment completed at bedside, Pt continues to say he his here because of lice, pt states he had a meeting today and adds "but it turned out all better." Pt c/o being hungry after dinner tonight and pt was offered evening snacks. Pt states he slept well last night, discussed removing nicotine patch with patient and possibility of nightmares, pt states "I had dreams but they were good dreams, I like having dreams because I never have dreams, I want to keep it on." Encouraged pt to remove patch again w/evening med pass and pt declined. Pt also declined benadryl stating "My trazadone helps me sleep, benadryl gives me sinus." S/I, H/I: Pt denies A/VH: Pt denies Sleep: None ADL's: Independent Group attendance: Yes Were meds taken: Yes Any med S/E: None reported or observed Mental Status Exam Appearance: disheveled and dressed wearing green scrubs and non skid socks. Encouraged pt to shower and pt states "I just had a shower tonight, I dont need another one." Eye contact: Good Behavior: pleasant, resisting a shower Speech: soft, normal rate and rhythm Mood: depressed Affect: blunted Thought process: linear Thought Content: stating case at hearing Cognition: A/O X 4 Insight: Fair Judgment: Fair Interventions PRN's: None Therapeutic interventions: 1:1 assessment, reality orientation, verbal de-escalation, active listening, medication administration/education/monitoring, encouragement to attend groups, Q15 minute safety checks. Restraints/seclusion/emergency medication: N/A Justification of Continued Inpatient Treatment: Pt requires therapeutic intervention and medication management. Pt is homeless and has no means for providing basic needs, food, halfway and healthcare.
[2019-01-31] MEDS: haloperidol 5mg tablet PO SCH (07:30)
[2019-01-31] MEDS: nicotine 21mg patch - 24 hr TD SCH (07:30)
[2019-01-31] MEDS: Ivermectin 3mg tablet PO SCH (07:32)
[2019-01-31 07:43] VITALS: BP 104/77
--- NOTE | 2019-01-31 07:45 | NUR ---
1:1 DISCHARGE PLANNING SW made TC to pt's mother to learn if pt could utilize her assistance to gain a bus ticket to [place], [place]. Mother agreed to assist him in accessing [facility] by 12:50 this day. DAVIDA Sapp
--- NOTE | 2019-01-31 10:50 | NUR ---
DISCHARGE NOTE The patient was discharged today at 1050. His mother and brother picked him up to give him a ride to the bus station. He will be traveling to [facility] where his sister lives. He plans to reside at the rescue [facility] in [place]. He left with all belongings, medications and instructions which he stated he understood. Denies any suicidal thoughts.
== END 2019-01-31 10:50 | disposition home or self-care (01) | DRG 885 ==
LOC: ADULT MH 09:26
PROVIDERS: ADMIT Psychiatry & Neurology Psychiatry; ATTEND Psychiatry & Neurology Psychiatry
DX: F20.0 Paranoid schizophrenia (principal); F15.950 Other stimulant use, unspecified with stimulant-induced psychotic disorder with delusions; Z72.89 Other problems related to lifestyle; B85.2 Pediculosis, unspecified; E11.9 Type 2 diabetes mellitus without complications; F12.10 Cannabis abuse, uncomplicated; F17.210 Nicotine dependence, cigarettes, uncomplicated; I10 Essential (primary) hypertension; Z62.810 Personal history of physical and sexual abuse in childhood; Z79.899 Other long term (current) drug therapy; Z88.0 Allergy status to penicillin; Z91.410 Personal history of adult physical and sexual abuse; Z59.0 Homelessness
CPT/HCPCS: 36415; 80061; 83036; 87070; Q0163

== ENCOUNTER 2019-05-22 19:17 | Emergency (ER) | payer MEDICARE, MEDICAID ==
[~2019-05-22] VITALS: Ht 177.8 cm; Wt 60.6 kg
[~2019-05-22 19:17] MED LIST changes: -CHOL100046 PO; +TRAZ-251 PO; +haldol PO
[2019-05-22] MEDS ORDERED: ondansetron 4mg rapidly disintigrating tab PO ONE (20:00)
[2019-05-22 20:20] LABS: BASOPHILS # (AUTO) 0.1 X10'3 (0-0.2); BASOPHILS % (AUTO) 0.8 % (0-1); EOSINOPHILS # (AUTO) 0.2 X10'3 (0-0.9); EOSINOPHILS % (AUTO) 2.6 % (0-6); HEMATOCRIT 40.5 % (42.0-52.0); HEMOGLOBIN 13.7 g/dl (14.0-17.9); LYMPHOCYTES # (AUTO) 2.7 X10'3 (1.1-4.8); LYMPHOCYTES % (AUTO) 28.9 % (21-51); MEAN CORPUSCULAR HEMOGLOBIN 31.2 PG (27.0-31.0); MEAN CORPUSCULAR HGB CONC 33.7 g/dL (33.0-36.5); MEAN CORPUSCULAR VOLUME 92.6 FL (78-98); MEAN PLATELET VOLUME 6.5 FL (7.4-10.4); MONOCYTES # (AUTO) 0.8 X10'3 (0-0.9); MONOCYTES % (AUTO) 8.2 % (2-12); NEUTROPHILS # (AUTO) 5.5 X10'3 (1.8-7.7); NEUTROPHILS % (AUTO) 59.5 % (42-75); PLATELET COUNT 404 X10'3 (140-440); RED BLOOD COUNT 4.37 X10'6 (4.70-6.10); RED CELL DISTRIBUTION WIDTH 14.3 % (11.5-14.5); WHITE BLOOD COUNT 9.2 X10'3 (4.5-11.0)
[2019-05-22 20:37] LABS: ALANINE AMINOTRANSFERASE 42 U/L (12-78); ALBUMIN 3.4 G/DL (3.4-5.0); ALBUMIN/GLOBULIN RATIO 0.9 (1.1-1.5); ALKALINE PHOSPHATASE 73 IU/L (46-116); ANION GAP 7 (8-16); ASPARTATE AMINO TRANSFERASE 25 U/L (10-37); BILIRUBIN,TOTAL 0.2 MG/DL (0.1-1.0); BLOOD UREA NITROGEN 13 MG/DL (7-18); BUN/CREATININE RATIO 12.5 (5.4-32.0); CALCIUM 8.7 MG/DL (8.5-10.1); CHLORIDE 112 MMOL/L (99-107); CREATININE 1.04 MG/DL (0.60-1.10); GLUCOSE 86 MG/DL (70-104); SODIUM 147 MMOL/L (135-145); TOTAL CARBON DIOXIDE 28.4 MMOL/L (24-32); TOTAL PROTEIN 7.1 G/DL (6.4-8.2); eGFR 78 ML/MIN
[2019-05-22] MEDS ORDERED: ONDA4TAB6 PO (21:00)
[2019-05-22 21:21] VITALS: BP 137/95
[2019-05-23] MEDS ORDERED: HALO5TAB PO (15:45)
[2019-05-23] MEDS ORDERED: TRAZ-251 PO (15:45)
== END 2019-05-22 21:22 | disposition home or self-care (01) ==
LOC: ER 19:18
DX: T67.5XXA Heat exhaustion, unspecified, initial encounter (principal); E86.0 Dehydration; G89.29 Other chronic pain; F41.9 Anxiety disorder, unspecified; F31.9 Bipolar disorder, unspecified; F20.9 Schizophrenia, unspecified; F12.90 Cannabis use, unspecified, uncomplicated; F15.90 Other stimulant use, unspecified, uncomplicated; Z88.0 Allergy status to penicillin; Z88.1 Allergy status to other antibiotic agents; Z88.8 Allergy status to other drugs, medicaments and biological substances; Z79.899 Other long term (current) drug therapy; Z90.49 Acquired absence of other specified parts of digestive tract; Z56.0 Unemployment, unspecified; Z59.0 Homelessness; X30.XXXA Exposure to excessive natural heat, initial encounter; Y93.89 Activity, other specified; Y92.89 Other specified places as the place of occurrence of the external cause; Y99.8 Other external cause status
CPT/HCPCS: 36415; 80053; 85025; 99283; J2405

== ENCOUNTER 2019-05-23 09:25 | Emergency (ER) | payer MEDICARE, MEDICAID ==
[~2019-05-23] VITALS: Ht 177.8 cm; Wt 60.0 kg
[~2019-05-23 09:25] MED LIST changes: +ONDA4TAB6 PO
--- NOTE | 2019-05-23 09:44 | NUR ---
this patient has not verbalized any Suicidal Ideation. He just is having a [facility]"
[2019-05-23 10:05] VITALS: BP 120/72
[2019-05-23] MEDS ORDERED: TRAZ-251 PO (15:45)
[2019-05-23] MEDS ORDERED: HALO5TAB PO (15:45)
== END 2019-05-23 10:07 | disposition home or self-care (01) ==
LOC: ER 09:26
DX: Z00.8 Encounter for other general examination (principal); G89.29 Other chronic pain; F41.9 Anxiety disorder, unspecified; F31.9 Bipolar disorder, unspecified; F20.9 Schizophrenia, unspecified; F12.90 Cannabis use, unspecified, uncomplicated; F15.90 Other stimulant use, unspecified, uncomplicated; Z90.49 Acquired absence of other specified parts of digestive tract; Z98.890 Other specified postprocedural states; Z56.0 Unemployment, unspecified; Z59.0 Homelessness; Z88.0 Allergy status to penicillin; Z88.1 Allergy status to other antibiotic agents; Z88.8 Allergy status to other drugs, medicaments and biological substances; Z79.899 Other long term (current) drug therapy
CPT/HCPCS: 99281

== ENCOUNTER 2019-05-23 12:12 | Emergency (ER) | payer MEDICARE, MEDICAID ==
[~2019-05-23] VITALS: Ht 177.8 cm; Wt 77.3 kg
[2019-05-23 13:14] LABS: URINE AMPHETAMINE SCREEN NEGATIVE (Neg); URINE BARBITUATE SCREEN NEGATIVE (Neg); URINE BENZODIAZEPINES SCREEN NEGATIVE (Neg); URINE CANNABINOID SCREEN POSITIVE (Neg); URINE COCAINE SCREEN NEGATIVE (Neg); URINE METHADONE SCREEN NEGATIVE (Neg); URINE OPIATE SCREEN POSITIVE (Neg); URINE PHENCYCLIDINE SCREEN NEGATIVE (Neg)
[2019-05-23 13:19] LABS: BASOPHILS # (AUTO) 0.1 X10'3 (0-0.2); BASOPHILS % (AUTO) 0.7 % (0-1); EOSINOPHILS # (AUTO) 0.3 X10'3 (0-0.9); EOSINOPHILS % (AUTO) 3.6 % (0-6); HEMOGLOBIN 13.4 g/dl (14.0-17.9); LYMPHOCYTES # (AUTO) 2.6 X10'3 (1.1-4.8); LYMPHOCYTES % (AUTO) 29.3 % (21-51); MEAN CORPUSCULAR HEMOGLOBIN 31.2 PG (27.0-31.0); MEAN CORPUSCULAR HGB CONC 33.5 g/dL (33.0-36.5); MEAN PLATELET VOLUME 6.7 FL (7.4-10.4); MONOCYTES # (AUTO) 0.8 X10'3 (0-0.9); MONOCYTES % (AUTO) 9.1 % (2-12); NEUTROPHILS # (AUTO) 5.1 X10'3 (1.8-7.7); NEUTROPHILS % (AUTO) 57.3 % (42-75); PLATELET COUNT 402 X10'3 (140-440); RED CELL DISTRIBUTION WIDTH 14.1 % (11.5-14.5); WHITE BLOOD COUNT 8.9 X10'3 (4.5-11.0)
[2019-05-23 13:21] LABS: ALANINE AMINOTRANSFERASE 39 U/L (12-78); ALBUMIN 3.2 G/DL (3.4-5.0); ALBUMIN/GLOBULIN RATIO 0.9 (1.1-1.5); ALKALINE PHOSPHATASE 72 IU/L (46-116); ANION GAP 10 (8-16); ASPARTATE AMINO TRANSFERASE 19 U/L (10-37); BILIRUBIN,TOTAL 0.1 MG/DL (0.1-1.0); BLOOD UREA NITROGEN 15 MG/DL (7-18); CALCIUM 8.4 MG/DL (8.5-10.1); CHLORIDE 107 MMOL/L (99-107); CREATININE 0.75 MG/DL (0.60-1.10); GLUCOSE 88 MG/DL (70-104); POTASSIUM 3.9 MMOL/L (3.5-5.1); SODIUM 143 MMOL/L (135-145); TOTAL PROTEIN 6.7 G/DL (6.4-8.2); eGFR > 90 ML/MIN
[2019-05-23 13:32] LABS: ETHANOL < 0.010 GM/DL (0.0-0.010)
[2019-05-23 13:33] LABS: ACETAMINOPHEN < 2.0 UG/ML (10-30)
--- NOTE | 2019-05-23 15:08 | NUR ---
Note keshia in ED - 05/23/19 at 1715 by OLAMIDE PT STATES, IM OUT OF MEDS, THEY WERE LOST OR STOLEN. WHEN ASKED WHAT YOUR PLAN IS? STATES, I JUST WANT TO DRIVE AWAY AND NEVER COME BACK.
[2019-05-23] MEDS ORDERED: HALO5TAB PO (15:45)
[2019-05-23] MEDS ORDERED: TRAZ-251 PO (15:45)
[2019-05-23] MEDS ORDERED: LORazepam 2 mg/ml vial IM ONE ×2 (16:20)
[2019-05-23] MEDS ORDERED: diphenhydrAMINE 50 mg/ml inj IM ONE (16:20)
[2019-05-23] MEDS ORDERED: haloperidol lactate 5mg/ml inj ONE (16:24)
--- NOTE | 2019-05-23 16:28 | NUR ---
PT ACTING OUT THROWING TISSUE, HALLUCINATING, STATING QUITE STEELING THE CHILDREN, PT BELLIGERANT, YELLING OUT, INFORMED DR. HO. PLEASE SEE NEW ORDERS.
[2019-05-23] MEDS ORDERED: traZODone 50mg tablet PO SCH (21:00)
--- NOTE | 2019-05-23 21:28 | NUR ---
pt continues to sleep, snores loud
[2019-05-24 05:53] VITALS: BP 110/73
[2019-05-24] MEDS ORDERED: haloperidol 5mg tablet PO SCH (08:00)
== END 2019-05-24 10:37 | disposition home or self-care (01) ==
LOC: ER 12:13
DX: F70 Mild intellectual disabilities (principal); G89.29 Other chronic pain; F41.9 Anxiety disorder, unspecified; F31.9 Bipolar disorder, unspecified; F20.9 Schizophrenia, unspecified; F12.90 Cannabis use, unspecified, uncomplicated; F15.90 Other stimulant use, unspecified, uncomplicated; Z56.0 Unemployment, unspecified; Z59.0 Homelessness; Z90.49 Acquired absence of other specified parts of digestive tract; Z98.890 Other specified postprocedural states; Z88.0 Allergy status to penicillin; Z88.1 Allergy status to other antibiotic agents; Z88.8 Allergy status to other drugs, medicaments and biological substances; Z79.899 Other long term (current) drug therapy
CPT/HCPCS: 36415; 80053; 80305; 80320; 80329; 84443; 85025; 96372; 99285; J1200; J1630; J2060

== ENCOUNTER 2020-01-17 13:46 | Emergency (ER) | payer MEDICARE, MEDICAID ==
[~2020-01-17] VITALS: Ht 177.8 cm; Wt 70.5 kg
[~2020-01-17 13:46] MED LIST changes: -IBUP-1985 PO; -ONDA4TAB6 PO; -haldol PO
[2020-01-17 13:47] VITALS: BP 143/84
--- NOTE | 2020-01-17 13:51 | NUR ---
Pt in ER bay for screening, physical exam deferred to Provider. See Provider physical assessment.
== END 2020-01-17 15:08 | disposition home or self-care (01) ==
LOC: ER 13:46
DX: B85.0 Pediculosis due to Pediculus humanus capitis (principal); G89.29 Other chronic pain; F12.90 Cannabis use, unspecified, uncomplicated; F15.90 Other stimulant use, unspecified, uncomplicated; Z59.0 Homelessness; Z56.0 Unemployment, unspecified; Z90.49 Acquired absence of other specified parts of digestive tract; Z88.0 Allergy status to penicillin; Z88.1 Allergy status to other antibiotic agents; Z88.4 Allergy status to anesthetic agent
CPT/HCPCS: 99284

== ENCOUNTER 2020-01-19 13:58 | Inpatient (IN) | payer MEDICARE, MEDICAID ==
[~2020-01-19] VITALS: Ht 177.8 cm; Wt 60.6 kg
[2020-01-19] MEDS ORDERED: acetaminophen 325mg tablet PO PRN (14:30)
[2020-01-19] MEDS ORDERED: hydrOXYzine 25 MG tablet PO PRN (14:30)
[2020-01-19] MEDS ORDERED: loperamide 2mg capsule PO PRN (14:30)
[2020-01-19] MEDS ORDERED: LORazepam 1 MG tablet PO PRN (14:30)
[2020-01-19] MEDS ORDERED: diphenhydrAMINE 25mg capsule PO PRN (14:30)
[2020-01-19 15:00] VITALS: BP 148/107
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
[2020-01-19] MEDS ORDERED: OLAN5TAB3 PO (15:42)
[2020-01-19 19:00] VITALS: BP 107/56
[2020-01-19] MEDS: traZODone 50mg tablet PO PRN (20:03)
[2020-01-19] MEDS: OLANZAPINE 5 MG TABLET PO SCH (20:03)
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
[2020-01-20 07:30] VITALS: BP 124/67
[2020-01-20] MEDS: OLANZAPINE 5 MG TABLET PO SCH ×2 (07:45→20:10)
[2020-01-20] MEDS: lactose-reduced food (Ensure Enlive) - 237ml bottle PO SCH ×3 (08:00→18:12)
[2020-01-20 08:07] LABS: CHOLESTEROL 106 MG/DL (0-200); HDL CHOLESTEROL 54 MG/DL (35-60); LDL CHOLESTEROL 42 MG/DL (50-100); TRIGLYCERIDES 66 MG/DL (20-135)
[2020-01-20] MEDS ORDERED: FLU VACC QS2019-20 36MOS UP/PF 60 MCG/0.5 ML SYRINGE IMVAC ONE (09:00)
[2020-01-20] MEDS: nicotine 21mg patch - 24 hr TD SCH (13:39)
[2020-01-20 16:15] VITALS: BP 109/81
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
[2020-01-20 19:00] VITALS: BP 105/70
[2020-01-20] MEDS: traZODone 50mg tablet PO PRN (20:10)
[2020-01-20] MEDS ORDERED: ipratropium/albuterol 3ml nebule NEB PRN (21:55)
[2020-01-20] MEDS: acetaminophen 325mg tablet PO PRN (22:43)
[2020-01-20] MEDS: levoFLOXACIN 750MG TABLET PO SCH (22:44)
[2020-01-20 23:45] LABS: ALANINE AMINOTRANSFERASE 33 U/L (12-78); ALBUMIN 2.8 G/DL (3.4-5.0); ALBUMIN/GLOBULIN RATIO 0.7 (1.1-1.5); ALKALINE PHOSPHATASE 93 IU/L (46-116); ANION GAP 7 (8-16); ASPARTATE AMINO TRANSFERASE 22 U/L (10-37); BILIRUBIN,TOTAL 0.1 MG/DL (0.1-1.0); BLOOD UREA NITROGEN 26 MG/DL (7-18); CALCIUM 8.9 MG/DL (8.5-10.1); CHLORIDE 105 MMOL/L (99-107); CREATININE 0.84 MG/DL (0.60-1.10); GLUCOSE 125 MG/DL (70-104); MAGNESIUM 2.1 MG/DL (1.5-2.4); PHOSPHORUS 3.9 MG/DL (2.3-4.5); SODIUM 141 MMOL/L (135-145); TOTAL CARBON DIOXIDE 28.7 MMOL/L (24-32); eGFR > 90 ML/MIN
[2020-01-20 23:57] LABS: BASOPHILS # (AUTO) 0.1 X10'3 (0-0.2); EOSINOPHILS # (AUTO) 0.5 X10'3 (0-0.9); EOSINOPHILS % (AUTO) 4.6 % (0-6); HEMATOCRIT 38.6 % (42.0-52.0); HEMOGLOBIN 12.7 g/dl (14.0-17.9); LYMPHOCYTES # (AUTO) 3.3 X10'3 (1.1-4.8); LYMPHOCYTES % (AUTO) 31.1 % (21-51); MEAN CORPUSCULAR HEMOGLOBIN 29.8 PG (27.0-31.0); MEAN CORPUSCULAR HGB CONC 32.8 g/dL (33.0-36.5); MEAN CORPUSCULAR VOLUME 90.9 FL (78-98); MEAN PLATELET VOLUME 6.8 FL (7.4-10.4); MONOCYTES # (AUTO) 1.3 X10'3 (0-0.9); MONOCYTES % (AUTO) 12.7 % (2-12); NEUTROPHILS # (AUTO) 5.3 X10'3 (1.8-7.7); NEUTROPHILS % (AUTO) 50.6 % (42-75); PLATELET COUNT 506 X10'3 (140-440); RED BLOOD COUNT 4.25 X10'6 (4.70-6.10); RED CELL DISTRIBUTION WIDTH 14.3 % (11.5-14.5); WHITE BLOOD COUNT 10.5 X10'3 (4.5-11.0)
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
[2020-01-21 08:00] VITALS: BP 107/75
[2020-01-21] MEDS: lactose-reduced food (Ensure Enlive) - 237ml bottle PO SCH ×2 (08:08→13:52)
[2020-01-21] MEDS: nicotine 21mg patch - 24 hr TD SCH (08:08)
[2020-01-21] MEDS: OLANZAPINE 5 MG TABLET PO SCH ×2 (08:08→20:27)
[2020-01-21] MEDS: haloperidol 5mg tablet PO PRN (08:28)
[2020-01-21] MEDS ORDERED: Permethrin 1% 59ml topical rinse TP ONE (08:35)
[2020-01-21 09:52] LABS: HIV ANTIBODY 1&2 RAPID NON-REACTIVE (Neg)
[2020-01-21] MEDS: levoFLOXACIN 750MG TABLET PO SCH (11:19)
[2020-01-21 11:37] LABS: CLARITY,URINE CLEAR (Clear); COLOR,URINE YELLOW (Yellow); GLUCOSE, URINE NEGATIVE (Neg); KETONES,URINE TRACE mg/dl (Neg); LEUKOCYTE ESTERASE ,URINE NEGATIVE (Neg); NITRITES, URINE NEGATIVE (Neg); OCCULT BLOOD,URINE NEGATIVE (Neg); PH,URINE 5.5 (4.8-8.0); PROTEIN,URINE NEGATIVE (Neg); UROBILINOGEN,URINE 0.2 E.U/dL (0.2-1.0)
[2020-01-21 11:38] LABS: UA COLLECTION TYPE NON-SPECIFIED
[2020-01-21] MEDS ORDERED: Ivermectin 3mg tablet PO SCH (11:40)
[2020-01-21 11:43] LABS: URINE AMPHETAMINE SCREEN NEGATIVE (Neg); URINE BARBITUATE SCREEN NEGATIVE (Neg); URINE BENZODIAZEPINES SCREEN NEGATIVE (Neg); URINE CANNABINOID SCREEN POSITIVE (Neg); URINE COCAINE SCREEN NEGATIVE (Neg); URINE METHADONE SCREEN NEGATIVE (Neg); URINE OPIATE SCREEN NEGATIVE (Neg); URINE PHENCYCLIDINE SCREEN NEGATIVE (Neg)
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
[2020-01-21 20:00] VITALS: BP 99/65
[2020-01-21] MEDS: traZODone 50mg tablet PO PRN (20:33)
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
[2020-01-22] MEDS: nicotine 21mg patch - 24 hr TD SCH (07:44)
[2020-01-22] MEDS: OLANZAPINE 5 MG TABLET PO SCH ×2 (07:49→20:24)
[2020-01-22 08:00] VITALS: BP 110/75
[2020-01-22] MEDS: lactose-reduced food (Ensure Enlive) - 237ml bottle PO SCH ×3 (08:00→17:58)
[2020-01-22] MEDS: levoFLOXACIN 500mg tablet PO SCH (11:22)
[2020-01-22] MEDS: acetaminophen 325mg tablet PO PRN (14:47)
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
[2020-01-22 20:00] VITALS: BP 128/87
[2020-01-22] MEDS: traZODone 50mg tablet PO PRN (20:23)
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
[2020-01-23 07:09] LABS: RPR Non Reactive (Non Reactive)
[2020-01-23] MEDS: OLANZAPINE 5 MG TABLET PO SCH (07:49)
[2020-01-23] MEDS: nicotine 21mg patch - 24 hr TD SCH (07:49)
[2020-01-23 08:11] LABS: HBSAG SCREEN Negative (Negative); HEP A AB, IGM Negative (Negative); HEP B CORE AB, IGM Negative (Negative); HEPATITIS C ANTIBODY >11.0 s/co ratio (0.0-0.9)
[2020-01-23 08:21] VITALS: BP 111/74
[2020-01-23] MEDS: lactose-reduced food (Ensure Enlive) - 237ml bottle PO SCH ×3 (08:26→18:00)
[2020-01-23] MEDS: levoFLOXACIN 500mg tablet PO SCH (10:48)
--- NOTE | 2020-01-23 15:52 | NUR ---
SS had t/c with Victor Manuel, financial manager @ [facility], per t/c pt is no longer welcome to rt there. Victor Manuel reports that pt had lived @ the [facility] facilities for 4x, pt's functioning worsens each time. Victor Manuel also noted that pt would not take his meds and becomes argmentative w/house staff when they prompt him. Nell Coburn LCSW Addendum: 01/23/20 at 1608 by Nell RODRIGUEZ Amended: Links added.
[2020-01-23] MEDS: haloperidol 5mg tablet PO PRN (16:40)
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
[2020-01-23] MEDS: acetaminophen 325mg tablet PO PRN (19:03)
[2020-01-23 20:00] VITALS: BP 135/78
[2020-01-23] MEDS: haloperidol 5mg tablet PO SCH (20:27)
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
[2020-01-24 07:58] VITALS: BP 108/54
[2020-01-24] MEDS: haloperidol 5mg tablet PO SCH ×2 (08:27→20:49)
[2020-01-24] MEDS: nicotine 21mg patch - 24 hr TD SCH (08:28)
[2020-01-24] MEDS: lactose-reduced food (Ensure Enlive) - 237ml bottle PO SCH ×3 (08:29→18:00)
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
[2020-01-24] MEDS: levoFLOXACIN 500mg tablet PO SCH (11:42)
--- NOTE | 2020-01-24 12:28 | NUR ---
Initial: great appetite, eating well; 100% PO intake regular diet with double protein/double meat per diet order. Noted that patient is also receiving ensure enlive TID per MD order since admission, drinking 100%; in view of optimal PO intake and meeting needs through diet an oral nutrition supplement is not indicated, however in view of receiving since admission will continue to not disrupt patient's dietary routine. Recommend: 1. continue regular diet with double meat, double protein per diet order 2. bowel care as needed 3. weekly weights Addendum: 01/24/20 at [address] Amended: Links added.
--- NOTE | 2020-01-24 17:19 | NUR ---
Nursing Progress Note: LEGAL HOLD: 5150 for DTS. REPORT: Received from ONESIMO Davis with use of SBAR REASON FOR ADMISSION: Client has a long history of mental health issues, poly-substance abuse, ETOH abuse, and one suicide attempt. He reports hearing ten different voices that tell him to hurt himself and others. Client stopped taking his meds two weeks ago and has declined since. Reports that the voices are "worse than they have ever been". Client arrived on unit disheveled, and appeared anxious. He was cooperative during admission. His belongings were inventoried. He received 800 mg Seroquel Tab PO and went to sleep. What happened this shift: Patient awakened for breakfast and medications. Patient appears depressed and napped in a.m. Patient states that he has been suicidal for a long time. After he quit taking his medications, the command auditory hallucinations returned, telling him to kill himself. Pt. Reports that the voices are barely noticeable in the morning and increase as the day goes on. Patient spent much of the shift sleeping. ASSESSMENT: S/I, H/I: +SI. A/VH: AH/CAH Sleep: morning nap. ADL's: Independent Group attendance: NA Were meds taken: Yes Any med S/E: None reported or observed. Mental status exam: Appearance: Tanned male with salt and pepper hair and mckoy. Eye contact: Poor. Behavior: Fatigued. Calm, cooperative. Withdrawn, isolative. Speech: Minimal, clear Mood: Depressed. Affect: Flat. Thought process: Linear Cognition: A&O X3 Insight: Fair Judgment: Fair INTERVENTIONS: PRN's used: None Therapeutic interventions: 1:1 to evaluate for severity of mental disorder, SI. Administer medications/education/monitoring. Therapeutic conversation. Q15 safety checks. Restraints/seclusion/emergency medication: None Justification of Continued Inpatient Treatment: Patient is in need of a safe, supportive environment. Medication adjustments to stabilize patient and decrease risk of readmission.
[2020-01-24 20:00] VITALS: BP 128/69
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
[2020-01-25] MEDS: haloperidol 5mg tablet PO SCH ×2 (07:32→20:40)
[2020-01-25] MEDS: nicotine 21mg patch - 24 hr TD SCH (07:32)
[2020-01-25] MEDS: lactose-reduced food (Ensure Enlive) - 237ml bottle PO SCH ×3 (07:33→17:25)
[2020-01-25 08:00] VITALS: BP 116/71
[2020-01-25] MEDS: levoFLOXACIN 500mg tablet PO SCH (11:23)
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
[2020-01-25] MEDS: acetaminophen 325mg tablet PO PRN (20:02)
[2020-01-25 20:18] VITALS: BP 121/71
[2020-01-25] MEDS ORDERED: HALO5TAB PO (20:43)
[2020-01-25] MEDS ORDERED: IVER3TAB2 PO (20:43)
[2020-01-25] MEDS ORDERED: TRAZ-251 PO (20:43)
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
[2020-01-26] MEDS: levoFLOXACIN 500mg tablet PO SCH (07:01)
[2020-01-26] MEDS: lactose-reduced food (Ensure Enlive) - 237ml bottle PO SCH (07:01)
[2020-01-26] MEDS: haloperidol 5mg tablet PO SCH (07:01)
[2020-01-26] MEDS ORDERED: Ivermectin 3mg tablet PO ONE (07:15)
[2020-01-26] MEDS: nicotine 21mg patch - 24 hr TD SCH (07:15)
[2020-01-26 08:00] VITALS: BP 107/71
--- NOTE | 2020-01-26 08:11 | NUR ---
Discharge Pt's scheduled to d/c this morning, SS met with pt, reviewed dcp, provided pt w/a photocopy of his state ID and engaged him is discussion re the importance of establishing outpatient mental health services, pt again declined linkage to outpatient services, SS provided pt with [facility] brochure and encouraged him to contact the Mobile Crisis team if he feels like he needs to be seen. Nell Coburn LCSW Addendum: 01/26/20 at 0814 by Nell RODRIGUEZ Amended: Links added.
--- NOTE | 2020-01-26 10:20 | NUR ---
DISCHARGE NOTE The patient was discharged today at 1020. He left with all belongings, prescriptions and instructions. He stated he was "ready to leave" and "the voices are completely gone." Denies suicidal thoughts. His mother came to pick him up. He was escorted to the lobby by BALJIT Andrea.
== END 2020-01-26 10:20 | disposition home or self-care (01) | DRG 885 ==
LOC: ADULT MH 13:58
PROVIDERS: ADMIT Psychiatry & Neurology Psychiatry; ATTEND Psychiatry & Neurology Psychiatry
DX: F20.0 Paranoid schizophrenia (principal); J18.9 Pneumonia, unspecified organism; J44.0 Chronic obstructive pulmonary disease with (acute) lower respiratory infection; F31.9 Bipolar disorder, unspecified; F15.10 Other stimulant abuse, uncomplicated; F17.210 Nicotine dependence, cigarettes, uncomplicated; F12.10 Cannabis abuse, uncomplicated; F13.10 Sedative, hypnotic or anxiolytic abuse, uncomplicated; B19.20 Unspecified viral hepatitis C without hepatic coma; F10.10 Alcohol abuse, uncomplicated; G89.29 Other chronic pain; D64.9 Anemia, unspecified; E86.0 Dehydration; B85.0 Pediculosis due to Pediculus humanus capitis; Z20.828 Contact with and (suspected) exposure to other viral communicable diseases; M54.9 Dorsalgia, unspecified; Q05.9 Spina bifida, unspecified; Z59.0 Homelessness; Z88.0 Allergy status to penicillin; Z91.14 Patient's other noncompliance with medication regimen; Z28.21 Immunization not carried out because of patient refusal; Z71.6 Tobacco abuse counseling; Z71.51 Drug abuse counseling and surveillance of drug abuser; F29 Unspecified psychosis not due to a substance or known physiological condition
CPT/HCPCS: 36415; 71045; 80053; 80061; 80305; 81003; 83036; 83605; 83735; 84100; 84145; 85025; 86592; 86703; 86705; 86706; 86709; 86803; 87040; 87081; 87340; 87635; 94760; 99285; Z7610

== ENCOUNTER 2020-02-22 16:41 | Emergency (ER) | payer MEDICARE, MEDICAID ==
[~2020-02-22] VITALS: Ht 177.8 cm; Wt 56.3 kg
[~2020-02-22 16:41] MED LIST changes: +IVER3TAB2 PO
[2020-02-22 16:45] VITALS: BP 100/74
== END 2020-02-22 17:50 | disposition home or self-care (01) ==
LOC: ER 16:45
DX: Z91.83 Wandering in diseases classified elsewhere (principal); F41.9 Anxiety disorder, unspecified; F31.9 Bipolar disorder, unspecified; F20.9 Schizophrenia, unspecified; F12.90 Cannabis use, unspecified, uncomplicated; F15.90 Other stimulant use, unspecified, uncomplicated; Z86.19 Personal history of other infectious and parasitic diseases; Z90.49 Acquired absence of other specified parts of digestive tract; Z98.890 Other specified postprocedural states; Z59.0 Homelessness; Z56.0 Unemployment, unspecified; Z88.0 Allergy status to penicillin; Z88.1 Allergy status to other antibiotic agents; Z88.8 Allergy status to other drugs, medicaments and biological substances; Z79.899 Other long term (current) drug therapy
CPT/HCPCS: 99281

== ENCOUNTER 2020-02-24 21:42 | Inpatient (IN) | payer MEDICARE, MEDICAID ==
[~2020-02-24] VITALS: Ht 177.8 cm; Wt 66.3 kg
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
[2020-02-24 23:13] VITALS: BP 109/74
[2020-02-24] MEDS ORDERED: traZODone 50mg tablet PO PRN (23:25)
[2020-02-24] MEDS ORDERED: LORazepam 1 MG tablet PO PRN ×2 (23:25)
[2020-02-24] MEDS ORDERED: magnesium hydroxide 30ml (MOM) UD suspension PO PRN (23:25)
[2020-02-24] MEDS ORDERED: acetaminophen 325mg tablet PO PRN ×2 (23:25)
[2020-02-24] MEDS ORDERED: haloperidol 5mg tablet PO PRN (23:25)
[2020-02-24] MEDS ORDERED: loperamide 2mg capsule PO PRN (23:25)
[2020-02-24] MEDS ORDERED: mag hydrox/Alum hydrox/simeth 30ml oral suspension PO PRN (23:25)
[2020-02-24] MEDS ORDERED: quetiapine 100mg tablet PO PRN (23:25)
[2020-02-24] MEDS ORDERED: diphenhydrAMINE 25mg capsule PO PRN (23:25)
[2020-02-25] MEDS ORDERED: traZODone 50mg tablet PO PRN (01:00)
[2020-02-25 07:51] VITALS: BP 113/60
[2020-02-25] MEDS: haloperidol 5mg tablet PO SCH ×2 (08:31→20:17)
[2020-02-25 08:55] LABS: HEMOGLOBIN A1C 5.6 % (4.5-6.2)
[2020-02-25 08:57] LABS: CHOL/HDL RATIO 2.1 (0.00-4.99); CHOLESTEROL 93 MG/DL (0-200); HDL CHOLESTEROL 44 MG/DL (35-60); LDL CHOLESTEROL 38 MG/DL (50-100); TRIGLYCERIDES 73 MG/DL (20-135)
[2020-02-25] MEDS ORDERED: nicotine 21mg patch - 24 hr TD ONE (17:35)
--- NOTE | 2020-02-25 17:49 | NUR ---
Nursing Progress Note: Legal hold: 5150 Client on voluntary/involuntary status for DTS Report received from [facility] nurse with use of SBAR. Why are they here: Patient arrived to the unit at 2135 and placed on a 5150 for DTS. Patient presents as paranoid and somewhat delusional. He was transferred from [facility] due to endorsing SI. Patient believes that the Wi-Fi boxes that are attached to the buildings are getting into his brain and making him want to jump off the [place] bridge. Patient also believes that the carbon monoxide from the cars are poisoning him. Patient states that he is tired of living on the streets and that people are always after him. History of previous suicide attempt in the Assessment What has happened this shift: Patient appears intense and is pacing in the halls at change of shift. He is cooperative but is guarded and makes paranoid and delusional statements that he has been "poisoned by all of the cars driving around". He is somewhat agitated in the morning but this resolves after morning dose of haldol. New order in for nicotine patch. One time dose given now and scheduled order is in for the AM. He denies SI/HI, A/VH. He isolates most of the shift in his room but he eats meals in the group room. S/I, H/I: denies A/VH: denies Sleep: rests intermittently throughout the day ADL's: Independent Group attendance: NA Were meds taken: NA Any med S/E no Mental Status Exam Appearance: in red hat, green scrub top and dixon pants Eye contact: direct, intense Behavior: cooperative, guarded Speech: normal rate and volume slightly elevated at times Affect: flat Mood: anxious, labile Thought process: paranoid with delusional statements Thought Content: nicotine Cognition: A+OX4 Insight:fair Judgment:fair Interventions PRN's used:none Therapeutic interventions: Introduced self and established rapport, maintained a safe and supportive environment, provided clear and simple instructions medication administration/education/monitoring, Q15 min safety checks. Restraints/seclusion/emergency medication: N/A Justification of Continued Inpatient Treatment: Patient requires interruption of current crisis, medication adjustments in a safe and therapeutic environment.
[2020-02-25] MEDS: traZODone 50mg tablet PO SCH (20:17)
--- NOTE | 2020-02-26 01:13 | NUR ---
Nursing Progress Note: Legal hold: 5150 Client on voluntary/involuntary status for DTS Report received from nurse with use of SBAR. Why are they here: Patient arrived to the unit at 2135 and placed on a 5150 for DTS. Patient presents as paranoid and somewhat delusional. He was transferred from [facility] due to endorsing SI. Patient believes that the Wi-Fi boxes that are attached to the buildings are getting into his brain and making him want to jump off the [place] bridge. Patient also believes that the carbon monoxide from the cars are poisoning him. Patient states that he is tired of living on the streets and that people are always after him. History of previous suicide attempt in the Assessment What has happened this shift: Patient in his room sleeping till med pass. After med pass pt came out of his room and watched tv in rec room before asking for a shower. After shower pt pt returned to his room. Pt refused V/s and would only responed with short answers. S/I, H/I: denies A/VH: denies Sleep: rests intermittently throughout the day ADL's: Independent Group attendance: NA Were meds taken: NA Any med S/E no Mental Status Exam Appearance: in red hat, green scrub top and dixon pants Eye contact: direct, intense Behavior: cooperative, guarded Speech: normal rate and volume slightly elevated at times Affect: flat Mood: anxious, labile Thought process: paranoid with delusional statements Thought Content: nicotine Cognition: A+OX4 Insight:fair Judgment:fair Interventions PRN's used:none Therapeutic interventions: Introduced self and established rapport, maintained a safe and supportive environment, provided clear and simple instructions medication administration/education/monitoring, Q15 min safety checks. Restraints/seclusion/emergency medication: N/A Justification of Continued Inpatient Treatment: Patient requires interruption of current crisis, medication adjustments in a safe and therapeutic environment.
[2020-02-26] MEDS: haloperidol 5mg tablet PO SCH ×2 (07:45→20:17)
[2020-02-26] MEDS: nicotine 21mg patch - 24 hr TD SCH (07:46)
[2020-02-26 08:00] VITALS: BP 109/77
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
[2020-02-26 20:00] VITALS: BP 126/72
[2020-02-26] MEDS: traZODone 50mg tablet PO SCH (20:17)
[2020-02-27] MEDS ORDERED: NICOTINE POLACRILEX 2 MG LOZENGE BC PRN (00:45)
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
[2020-02-27 08:00] VITALS: BP 113/79
[2020-02-27] MEDS: nicotine 21mg patch - 24 hr TD SCH (08:31)
[2020-02-27] MEDS: haloperidol 5mg tablet PO SCH (08:31)
--- NOTE | 2020-02-27 10:00 | NUR ---
Group Therapy: Process Group This Clinicians goal for this process group were as follows: (1) Ask scaling questions about Patients current anxiety, depression, and irritability symptoms as a check-in. (2) Provide psychoeducation about CBT schema, presuppositions and filters through which all people view the world. (3) Discuss how thinking errors can skew the way we think, which can negatively impact our thoughts, feelings, and actions. (4) Provide psychoeducation on several different thinking errors. (5) Process Clients thoughts and reflections on this topic within the group milieu. Patient identified experiencing the following levels of anxiety, depression, and anger/irritability while present in the group milieu. Anxiety: 01/04 Depression: 01/04 Anger irritability: -03/06 Patient presented as cooperative within the group milieu. Patient wore a hat and street clothes within the group milieu. He looked older than his biological age, per this Clinician's impression. Patient arrived to group about 50 minutes into the 1 hour group. Patient provided answers to the scaling questions on his levels of depression, anxiety, and irritability, but did not engage in the discussion on he topic of thinking errors, or thought-reframes during group. Patient presented as subdued and unobtrusive within the group milieu. Emre Deleon MA, [place] Addendum: 02/28/20 at 0819 by Emre Deleon SS Amended: Links added.
--- NOTE | 2020-02-27 10:33 | NUR ---
DCP/Final Presenting Issues: Per consultation w/attending PA, pt will d/c today. Interventions: SS met w/pt and engaged him in finalizing dcp. Per session, pt requested a bus ticket so he can take the bus to the [facility] and see if he can get a room there. Pt declined linkages to outpatient healthcare providers. SS consulted w/assigned RN, re pt's need for bus ticket. Plan: Pt to d/c pending doctor's assessment. Nell Coburn LCSW Addendum: 02/27/20 at 1036 by Nell Coburn Amended: Links added.
[2020-02-27] MEDS ORDERED: HALO5TAB PO (11:01)
[2020-02-27] MEDS ORDERED: TRAZ-251 PO (11:01)
--- NOTE | 2020-02-27 12:06 | NUR ---
credit verifier Note: Patient given discharge instructions and prescription. Patient verbalized understanding. All questions were answered. Patient given a sack lunch and bus ticket. Patient has all his valuables and belongings. Patient denies suicidal ideation and states he is glad to be "getting out." Patient calm and cooperative. Patient does not need smoking cessation as patient wants to continue to smoke. Patient ambulatory, steady gait with RN Craig to [facility]. Patient to walk to bus stop to go to a hotel. No distress observed.
== END 2020-02-27 12:06 | disposition home or self-care (01) | DRG 885 ==
LOC: ADULT MH 21:42
PROVIDERS: ADMIT Psychiatry & Neurology Psychiatry; ATTEND Psychiatry & Neurology Psychiatry
DX: F29 Unspecified psychosis not due to a substance or known physiological condition (principal); R45.851 Suicidal ideations; F31.9 Bipolar disorder, unspecified; F19.10 Other psychoactive substance abuse, uncomplicated; F15.10 Other stimulant abuse, uncomplicated; F20.9 Schizophrenia, unspecified; J44.9 Chronic obstructive pulmonary disease, unspecified; F41.9 Anxiety disorder, unspecified; G89.29 Other chronic pain; M54.9 Dorsalgia, unspecified; B19.20 Unspecified viral hepatitis C without hepatic coma; F12.20 Cannabis dependence, uncomplicated; Z72.0 Tobacco use; Z59.0 Homelessness; Z88.0 Allergy status to penicillin; Z88.1 Allergy status to other antibiotic agents
CPT/HCPCS: 36415; 80061; 83036; 87081

== ENCOUNTER 2020-03-25 08:25 | Emergency (ER) | payer MEDICARE, MEDICAID ==
[~2020-03-25] VITALS: Ht 177.8 cm; Wt 65.9 kg
[~2020-03-25 08:25] MED LIST changes: -IVER3TAB2 PO
[2020-03-25 08:29] VITALS: BP 133/93
[2020-03-25] MEDS ORDERED: ALBU8.5H8 IH (09:05)
[2020-03-25] MEDS ORDERED: QUET-1 PO (09:05)
== END 2020-03-25 09:21 | disposition home or self-care (01) ==
LOC: ER 08:27
DX: T58.91XA Toxic effect of carbon monoxide from unspecified source, accidental (unintentional), initial encounter (principal); F20.9 Schizophrenia, unspecified; G89.29 Other chronic pain; F41.9 Anxiety disorder, unspecified; F31.9 Bipolar disorder, unspecified; F12.90 Cannabis use, unspecified, uncomplicated; F15.90 Other stimulant use, unspecified, uncomplicated; Z59.0 Homelessness; Z00.00 Encounter for general adult medical examination without abnormal findings; Z90.49 Acquired absence of other specified parts of digestive tract; Z98.890 Other specified postprocedural states; Z56.0 Unemployment, unspecified; Z86.19 Personal history of other infectious and parasitic diseases; Z88.8 Allergy status to other drugs, medicaments and biological substances
CPT/HCPCS: 99283

== ENCOUNTER 2020-03-31 18:48 | Emergency (ER) | payer MEDICARE, MEDICAID ==
[~2020-03-31] VITALS: Ht 177.8 cm; Wt 67.0 kg
[~2020-03-31 18:48] MED LIST changes: +ALBU8.5H8 IH; +QUET-1 PO
[2020-03-31] MEDS ORDERED: ALBU8HFA PO (21:24)
[2020-03-31 21:31] VITALS: BP 133/84
== END 2020-03-31 21:33 | disposition home or self-care (01) ==
LOC: ER 18:50
DX: R53.83 Other fatigue (principal); R11.0 Nausea; F12.90 Cannabis use, unspecified, uncomplicated; F41.9 Anxiety disorder, unspecified; F31.9 Bipolar disorder, unspecified; F15.90 Other stimulant use, unspecified, uncomplicated; F20.9 Schizophrenia, unspecified; G89.29 Other chronic pain; Z86.19 Personal history of other infectious and parasitic diseases; Z59.0 Homelessness; Z56.0 Unemployment, unspecified; Z88.0 Allergy status to penicillin; Z88.8 Allergy status to other drugs, medicaments and biological substances; Z79.899 Other long term (current) drug therapy
CPT/HCPCS: 99283

== ENCOUNTER 2020-04-16 17:40 | Emergency (ER) | payer MEDICARE, MEDICAID ==
[~2020-04-16 17:40] MED LIST changes: +ALBU8HFA PO
[2020-04-16 17:56] VITALS: BP 118/68
[2020-04-16] MEDS ORDERED: loperamide 2mg capsule PO ONE (18:25)
== END 2020-04-16 18:45 | disposition home or self-care (01) ==
LOC: ER 17:41
DX: R19.7 Diarrhea, unspecified (principal); G89.29 Other chronic pain; F41.9 Anxiety disorder, unspecified; F31.9 Bipolar disorder, unspecified; F20.9 Schizophrenia, unspecified; F12.90 Cannabis use, unspecified, uncomplicated; F15.90 Other stimulant use, unspecified, uncomplicated; Z56.0 Unemployment, unspecified; Z59.0 Homelessness; Z90.49 Acquired absence of other specified parts of digestive tract; Z87.440 Personal history of urinary (tract) infections; Z88.0 Allergy status to penicillin; Z88.1 Allergy status to other antibiotic agents; Z88.8 Allergy status to other drugs, medicaments and biological substances; Z88.5 Allergy status to narcotic agent
CPT/HCPCS: 99283

== ENCOUNTER 2020-04-26 21:08 | Emergency (ER) | payer MEDICARE, MEDICAID ==
[~2020-04-26] VITALS: Ht 177.8 cm; Wt 72.7 kg
[2020-04-26 21:12] VITALS: BP 110/77
[2020-04-26] MEDS ORDERED: Ivermectin 3mg tablet PO STA (21:24)
== END 2020-04-26 21:44 | disposition home or self-care (01) ==
LOC: ER 21:08
DX: B86 Scabies (principal); G89.29 Other chronic pain; F41.9 Anxiety disorder, unspecified; F31.9 Bipolar disorder, unspecified; F20.9 Schizophrenia, unspecified; Z86.19 Personal history of other infectious and parasitic diseases; Z90.49 Acquired absence of other specified parts of digestive tract; F12.90 Cannabis use, unspecified, uncomplicated; F15.90 Other stimulant use, unspecified, uncomplicated; Z59.0 Homelessness; Z56.0 Unemployment, unspecified; Z88.0 Allergy status to penicillin; Z79.899 Other long term (current) drug therapy; Z88.8 Allergy status to other drugs, medicaments and biological substances
CPT/HCPCS: 99283

== ENCOUNTER 2020-04-28 13:15 | Emergency (ER) | payer MEDICARE, MEDICAID ==
[~2020-04-28] VITALS: Ht 177.8 cm; Wt 72.7 kg
[2020-04-28 14:03] VITALS: BP 100/73
[2020-04-28] MEDS ORDERED: ondansetron 4mg rapidly disintigrating tab PO ONE (15:20)
[2020-04-28] MEDS ORDERED: loperamide 2mg capsule PO ONE (15:20)
== END 2020-04-28 15:42 | disposition home or self-care (01) ==
LOC: ER 13:16
DX: R11.2 Nausea with vomiting, unspecified (principal); R19.7 Diarrhea, unspecified; J02.9 Acute pharyngitis, unspecified; R10.9 Unspecified abdominal pain; G89.29 Other chronic pain; F41.9 Anxiety disorder, unspecified; F31.9 Bipolar disorder, unspecified; F20.9 Schizophrenia, unspecified; F17.200 Nicotine dependence, unspecified, uncomplicated; F12.90 Cannabis use, unspecified, uncomplicated; F15.90 Other stimulant use, unspecified, uncomplicated; R50.9 Fever, unspecified; R51 Headache; Z90.49 Acquired absence of other specified parts of digestive tract; Z98.890 Other specified postprocedural states; Z59.0 Homelessness; Z56.0 Unemployment, unspecified; Z88.0 Allergy status to penicillin; Z88.8 Allergy status to other drugs, medicaments and biological substances; Z79.899 Other long term (current) drug therapy
CPT/HCPCS: 99283

== ENCOUNTER 2020-05-27 16:54 | Emergency (ER) | payer MEDICARE, MEDICAID ==
[~2020-05-27] VITALS: Ht 177.8 cm; Wt 65.9 kg
[~2020-05-27 16:54] MED LIST changes: -ALBU8HFA PO
[2020-05-27 18:19] VITALS: BP 131/95
== END 2020-05-27 20:33 | disposition home or self-care (01) ==
LOC: ER 16:55
DX: S00.91XA Abrasion of unspecified part of head, initial encounter (principal); G89.29 Other chronic pain; F41.9 Anxiety disorder, unspecified; F31.9 Bipolar disorder, unspecified; F12.90 Cannabis use, unspecified, uncomplicated; F15.90 Other stimulant use, unspecified, uncomplicated; F20.9 Schizophrenia, unspecified; Z86.19 Personal history of other infectious and parasitic diseases; Z98.890 Other specified postprocedural states; Z59.0 Homelessness; Z56.0 Unemployment, unspecified; Z72.89 Other problems related to lifestyle; Z88.0 Allergy status to penicillin; Z88.8 Allergy status to other drugs, medicaments and biological substances; Z79.899 Other long term (current) drug therapy; X58.XXXA Exposure to other specified factors, initial encounter; Y93.89 Activity, other specified; Y92.89 Other specified places as the place of occurrence of the external cause; Y99.8 Other external cause status
CPT/HCPCS: 99281

== ENCOUNTER 2020-08-05 17:53 | Emergency (ER) | payer MEDICARE, MEDICAID ==
[~2020-08-05] VITALS: Ht 177.8 cm; Wt 65.9 kg
[2020-08-05 19:45] VITALS: BP 153/109
--- NOTE | 2020-08-05 19:46 | NUR ---
pt reports he has "a cold" cannot detail to me what his specific syjptoms are. states a cough, unsure if having fevers. states pain to his face where he has a chronic wound. states he has been "soiling himself" lately of stool, reports this is new. States he is staying on the streets and sometimes stays at [facility]. given disposible underware and socks and a blanket and wipes and a lunch sack.
--- NOTE | 2020-08-05 20:03 | NUR ---
I CALLED [facility] AND PT UNABLE TO STAY THERE, HE IS ON THEIR BLOCKED LIST.
== END 2020-08-05 20:19 | disposition home or self-care (01) ==
LOC: ER 17:54
DX: R05 Cough (principal); Z20.828 Contact with and (suspected) exposure to other viral communicable diseases; G89.29 Other chronic pain; F17.200 Nicotine dependence, unspecified, uncomplicated; F12.90 Cannabis use, unspecified, uncomplicated; F15.90 Other stimulant use, unspecified, uncomplicated; Z56.0 Unemployment, unspecified; Z90.49 Acquired absence of other specified parts of digestive tract; Z59.0 Homelessness; Z88.0 Allergy status to penicillin; Z88.1 Allergy status to other antibiotic agents; Z88.5 Allergy status to narcotic agent
CPT/HCPCS: 36415; 87635; 99283

== ENCOUNTER 2020-08-08 09:12 | Emergency (ER) | payer MEDICARE, MEDICAID ==
[~2020-08-08] VITALS: Ht 177.8 cm; Wt 65.9 kg
[2020-08-08 09:47] VITALS: BP 152/96
[2020-08-08] MEDS ORDERED: ondansetron 4mg rapidly disintigrating tab PO ONE (10:00)
[2020-08-08] MEDS ORDERED: ONDA4TAB6 PO (11:05)
[2020-08-08] MEDS ORDERED: SODI30SP3 BOTHNARES (11:07)
== END 2020-08-08 11:19 | disposition home or self-care (01) ==
LOC: ER 09:14
DX: J06.9 Acute upper respiratory infection, unspecified (principal); G89.29 Other chronic pain; M54.9 Dorsalgia, unspecified; F41.9 Anxiety disorder, unspecified; F32.9 Major depressive disorder, single episode, unspecified; F20.9 Schizophrenia, unspecified; F12.10 Cannabis abuse, uncomplicated; F15.10 Other stimulant abuse, uncomplicated; B19.20 Unspecified viral hepatitis C without hepatic coma; Z59.0 Homelessness; Z56.0 Unemployment, unspecified; Z87.448 Personal history of other diseases of urinary system; Z88.0 Allergy status to penicillin; Z88.1 Allergy status to other antibiotic agents; Z88.8 Allergy status to other drugs, medicaments and biological substances; Z88.6 Allergy status to analgesic agent; Z79.899 Other long term (current) drug therapy
CPT/HCPCS: 71045; 99284

== ENCOUNTER 2021-01-08 16:47 | Emergency (ER) | payer MEDICARE, MEDICAID ==
[~2021-01-08] VITALS: Ht 177.8 cm; Wt 70.5 kg
[~2021-01-08 16:47] MED LIST changes: +ONDA4TAB6 PO; +SODI30SP3 BOTHNARES
[2021-01-08 17:00] VITALS: BP 125/83
[2021-01-08] MEDS ORDERED: DIPH25CA83 PO (18:15)
== END 2021-01-08 18:30 | disposition home or self-care (01) ==
LOC: ER 16:48
DX: L29.9 Pruritus, unspecified (principal); R05 Cough; G89.29 Other chronic pain; F41.9 Anxiety disorder, unspecified; F31.9 Bipolar disorder, unspecified; F20.9 Schizophrenia, unspecified; F12.90 Cannabis use, unspecified, uncomplicated; F15.90 Other stimulant use, unspecified, uncomplicated; Z87.440 Personal history of urinary (tract) infections; Z86.19 Personal history of other infectious and parasitic diseases; Z90.89 Acquired absence of other organs; Z98.890 Other specified postprocedural states; Z72.89 Other problems related to lifestyle; Z56.0 Unemployment, unspecified; Z59.0 Homelessness; Z88.0 Allergy status to penicillin; Z88.1 Allergy status to other antibiotic agents; Z88.8 Allergy status to other drugs, medicaments and biological substances; Z79.899 Other long term (current) drug therapy
CPT/HCPCS: 93005; 99283

== ENCOUNTER 2021-01-18 13:11 | Emergency (ER) | payer MEDICARE, MEDICAID ==
[~2021-01-18] VITALS: Ht 177.8 cm; Wt 64.0 kg
[~2021-01-18 13:11] MED LIST changes: +DIPH25CA83 PO
[2021-01-18 14:30] LABS: BASOPHILS % (AUTO) 0.4 % (0-1); EOSINOPHILS # (AUTO) 0.1 X10'3 (0-0.9); EOSINOPHILS % (AUTO) 0.6 % (0-6); HEMATOCRIT 43.2 % (42.0-52.0); HEMOGLOBIN 14.5 g/dl (14.0-17.9); LYMPHOCYTES # (AUTO) 2.4 X10'3 (1.1-4.8); LYMPHOCYTES % (AUTO) 20.1 % (21-51); MEAN CORPUSCULAR HEMOGLOBIN 31.3 PG (27.0-31.0); MEAN CORPUSCULAR HGB CONC 33.7 g/dL (33.0-36.5); MEAN CORPUSCULAR VOLUME 93.1 FL (78-98); MEAN PLATELET VOLUME 6.6 FL (7.4-10.4); MONOCYTES % (AUTO) 8.4 % (2-12); NEUTROPHILS # (AUTO) 8.3 X10'3 (1.8-7.7); NEUTROPHILS % (AUTO) 70.5 % (42-75); PLATELET COUNT 432 X10'3 (140-440); RED BLOOD COUNT 4.64 X10'6 (4.70-6.10); RED CELL DISTRIBUTION WIDTH 13.8 % (11.5-14.5); WHITE BLOOD COUNT 11.8 X10'3 (4.5-11.0)
[2021-01-18 14:46] LABS: ALANINE AMINOTRANSFERASE 36 U/L (12-78); ALBUMIN 3.6 G/DL (3.4-5.0); ALKALINE PHOSPHATASE 79 IU/L (46-116); ANION GAP 8 (8-16); ASPARTATE AMINO TRANSFERASE 18 U/L (10-37); BILIRUBIN,TOTAL 0.3 MG/DL (0.1-1.0); BLOOD UREA NITROGEN 14 MG/DL (7-18); BUN/CREATININE RATIO 18.4 (5.4-32.0); CALCIUM 8.8 MG/DL (8.5-10.1); CHLORIDE 107 MMOL/L (99-107); CREATININE 0.76 MG/DL (0.60-1.10); GLUCOSE 91 MG/DL (70-104); POTASSIUM 3.8 MMOL/L (3.5-5.1); SODIUM 143 MMOL/L (135-145); TOTAL CARBON DIOXIDE 28.4 MMOL/L (24-32); TOTAL PROTEIN 7.2 G/DL (6.4-8.2); eGFR > 90 ML/MIN
[2021-01-18 14:53] LABS: MAGNESIUM 2.3 MG/DL (1.5-2.4)
--- NOTE | 2021-01-18 15:08 | NUR ---
PT DENIES SUICIDIAL IDEATION OR HOMICIDIAL IDEATION
[2021-01-18 15:18] VITALS: BP 149/81
== END 2021-01-18 15:20 | disposition home or self-care (01) ==
LOC: ER 13:11
DX: R07.89 Other chest pain (principal); F32.9 Major depressive disorder, single episode, unspecified; G89.29 Other chronic pain; F20.9 Schizophrenia, unspecified; F17.200 Nicotine dependence, unspecified, uncomplicated; F12.90 Cannabis use, unspecified, uncomplicated; F15.90 Other stimulant use, unspecified, uncomplicated; Z90.49 Acquired absence of other specified parts of digestive tract; Z72.89 Other problems related to lifestyle; Z59.0 Homelessness; Z56.0 Unemployment, unspecified; Z86.19 Personal history of other infectious and parasitic diseases; Z88.0 Allergy status to penicillin; Z88.1 Allergy status to other antibiotic agents; Z88.8 Allergy status to other drugs, medicaments and biological substances; Z79.899 Other long term (current) drug therapy
CPT/HCPCS: 36415; 71045; 80053; 83735; 83880; 84484; 85025; 99284; 99285

== ENCOUNTER 2021-04-14 09:28 | Emergency (ER) | payer MEDICARE, MEDICAID ==
[~2021-04-14] VITALS: Ht 177.8 cm; Wt 70.5 kg
[2021-04-14 09:58] VITALS: BP 150/96
[2021-04-15] MEDS ORDERED: NO HOME MEDS (00:21)
== END 2021-04-14 14:53 | disposition left against medical advice (07) ==
LOC: ER 09:28
DX: F41.9 Anxiety disorder, unspecified (principal); Z53.21 Procedure and treatment not carried out due to patient leaving prior to being seen by health care provider

== ENCOUNTER 2021-04-14 14:46 | Emergency (ER) | payer MEDICARE, MEDICAID ==
[~2021-04-14] VITALS: Ht 177.8 cm; Wt 65.5 kg
[2021-04-14 15:31] VITALS: BP 130/83
[2021-04-14 15:31] LABS: BASOPHILS % (AUTO) 0.5 % (0-1); EOSINOPHILS # (AUTO) 0.2 X10'3 (0-0.9); EOSINOPHILS % (AUTO) 2.5 % (0-6); HEMATOCRIT 38.6 % (42.0-52.0); HEMOGLOBIN 13.3 g/dl (14.0-17.9); LYMPHOCYTES # (AUTO) 2.4 X10'3 (1.1-4.8); LYMPHOCYTES % (AUTO) 34.6 % (21-51); MEAN CORPUSCULAR HEMOGLOBIN 31.3 PG (27.0-31.0); MEAN CORPUSCULAR HGB CONC 34.4 g/dL (33.0-36.5); MEAN PLATELET VOLUME 6.4 FL (7.4-10.4); MONOCYTES # (AUTO) 0.8 X10'3 (0-0.9); NEUTROPHILS # (AUTO) 3.6 X10'3 (1.8-7.7); NEUTROPHILS % (AUTO) 51.4 % (42-75); PLATELET COUNT 410 X10'3 (140-440); RED BLOOD COUNT 4.24 X10'6 (4.70-6.10); RED CELL DISTRIBUTION WIDTH 13.1 % (11.5-14.5)
[2021-04-14 15:52] LABS: ALANINE AMINOTRANSFERASE 55 U/L (12-78); ALBUMIN 3.3 G/DL (3.4-5.0); ALBUMIN/GLOBULIN RATIO 0.9 (1.1-1.5); ALKALINE PHOSPHATASE 68 IU/L (46-116); ANION GAP 6 (8-16); ASPARTATE AMINO TRANSFERASE 24 U/L (10-37); BILIRUBIN,TOTAL 0.5 MG/DL (0.1-1.0); BLOOD UREA NITROGEN 8 MG/DL (7-18); CALCIUM 8.4 MG/DL (8.5-10.1); CHLORIDE 107 MMOL/L (99-107); CREATININE 0.73 MG/DL (0.60-1.10); GLUCOSE 89 MG/DL (70-104); SODIUM 140 MMOL/L (135-145); TOTAL CARBON DIOXIDE 27.4 MMOL/L (24-32); eGFR > 90 ML/MIN
[2021-04-14 15:53] LABS: ETHANOL < 0.010 GM/DL (0.0-0.010); POTASSIUM 2.9 MMOL/L (3.5-5.1)
[2021-04-14] MEDS ORDERED: potassium Cl 20 mEq SR tablet PO STA (16:02)
[2021-04-14 16:47] LABS: CLARITY,URINE CLOUDY (Clear); COLOR,URINE YELLOW (Yellow); GLUCOSE, URINE NEGATIVE (Neg); KETONES,URINE NEGATIVE (Neg); LEUKOCYTE ESTERASE ,URINE NEGATIVE (Neg); NITRITES, URINE NEGATIVE (Neg); OCCULT BLOOD,URINE NEGATIVE (Neg); PH,URINE 5.5 (4.8-8.0); PROTEIN,URINE TRACE mg/dl (Neg); UA COLLECTION TYPE URINAL
[2021-04-14 16:52] LABS: URINE AMPHETAMINE SCREEN POSITIVE (Neg); URINE BARBITUATE SCREEN NEGATIVE (Neg); URINE BENZODIAZEPINES SCREEN NEGATIVE (Neg); URINE CANNABINOID SCREEN POSITIVE (Neg); URINE COCAINE SCREEN NEGATIVE (Neg); URINE METHADONE SCREEN NEGATIVE (Neg); URINE OPIATE SCREEN NEGATIVE (Neg); URINE PHENCYCLIDINE SCREEN NEGATIVE (Neg)
[2021-04-14 16:58] LABS: BACTERIA,URINE 1+ /HPF (Neg); CAL OXALATE CRYSTALS 3+ /HPF (NEGATIVE); MUCUS STRANDS MANY /LPF (Neg); RBC,URINE 0-2 /HPF (0-2); SQUAMOUS EPITHELIAL CELL,UR FEW /LPF (FEW); WBC,URINE 0-4 /HPF (0-4)
--- NOTE | 2021-04-14 17:30 | NUR ---
PACKET FAXED TO [facility]
--- NOTE | 2021-04-14 18:30 | NUR ---
PT SLEEPING ON L.SIDE, IN NO APPARENT DISTRESS, RR EVEN, NON-LABORED, IN LINE OF SIGHT OF NURSES STATION.
--- NOTE | 2021-04-14 20:31 | NUR ---
PT SLEEPING ON R.SIDE, IN NO APPARENT DISTRESS, RR EVEN, NON-LABORED, IN LINE OF SIGHT OF NURSES STATION.
--- NOTE | 2021-04-14 22:50 | NUR ---
SECURITY CALLED TO BEDSIDE, PT HOSTILE WITH THIS RN WHILE ATTEMPTING COVID SWAB. RN KRISTIN WITH HELP FROM SECURITY OBTAINS SWAB. PT. YELLING OBSENITIES AT STAFF, THREATENING, REMAINS ON BED, INSTRUCTED TO LAY DOWN, DOES NOT RESPOND TO VERBAL CALMING. REMAINS IN ROOM IN LINE OF SIGHT OF NURSES STATION.
[2021-04-14] MEDS ORDERED: MIDAZolam 5mg/ml 2ml vial IM ONE (23:00)
[2021-04-15] MEDS ORDERED: NO HOME MEDS (00:21)
== END 2021-04-14 23:45 ==
LOC: ER 14:46
DX: F31.62 Bipolar disorder, current episode mixed, moderate (principal); I10 Essential (primary) hypertension
CPT/HCPCS: 36415; 80053; 80305; 80320; 81001; 84443; 85025; 87635; 99285; C9803

== ENCOUNTER 2021-04-26 02:51 | Emergency (ER) | payer MEDICARE, MEDICAID ==
[~2021-04-26] VITALS: Ht 177.8 cm; Wt 66.4 kg
[~2021-04-26 02:51] MED LIST changes: -ALBU8.5H8 IH; +ARIP20TA21 PO; -DIPH25CA83 PO; -HALO5TAB PO; +NICO-687 TD; +NO HOME MEDS; -ONDA4TAB6 PO; -QUET-1 PO; -SODI30SP3 BOTHNARES
[2021-04-26 03:01] VITALS: BP 127/76
== END 2021-04-26 07:28 | disposition left against medical advice (07) ==
LOC: ER 02:52
DX: Z53.21 Procedure and treatment not carried out due to patient leaving prior to being seen by health care provider (principal)

== ENCOUNTER 2021-06-12 15:14 | Emergency (ER) | payer MEDICARE, MEDICAID ==
[~2021-06-12] VITALS: Ht 180.3 cm; Wt 160.0 kg
--- NOTE | 2021-06-12 16:13 | NUR ---
Pt is very angry. Rambling speech, swearing, using aggressive tone.
[2021-06-12 16:28] LABS: BASOPHILS # (AUTO) 0.1 X10'3 (0-0.2); BASOPHILS % (AUTO) 0.7 % (0-1); EOSINOPHILS # (AUTO) 0.4 X10'3 (0-0.9); EOSINOPHILS % (AUTO) 2.4 % (0-6); HEMATOCRIT 44.9 % (42.0-52.0); HEMOGLOBIN 14.6 g/dl (14.0-17.9); LYMPHOCYTES # (AUTO) 3.6 X10'3 (1.1-4.8); LYMPHOCYTES % (AUTO) 22.7 % (21-51); MEAN CORPUSCULAR HEMOGLOBIN 30.5 PG (27.0-31.0); MEAN CORPUSCULAR HGB CONC 32.5 g/dL (33.0-36.5); MEAN CORPUSCULAR VOLUME 93.7 FL (78-98); MEAN PLATELET VOLUME 6.7 FL (7.4-10.4); MONOCYTES # (AUTO) 1.1 X10'3 (0-0.9); NEUTROPHILS # (AUTO) 10.7 X10'3 (1.8-7.7); NEUTROPHILS % (AUTO) 67.2 % (42-75); PLATELET COUNT 467 X10'3 (140-440); RED BLOOD COUNT 4.79 X10'6 (4.70-6.10)
[2021-06-12 16:44] LABS: ALANINE AMINOTRANSFERASE 52 U/L (12-78); ALBUMIN 3.7 G/DL (3.4-5.0); ALBUMIN/GLOBULIN RATIO 0.9 (1.1-1.5); ALKALINE PHOSPHATASE 93 IU/L (46-116); ANION GAP 8 (8-16); ASPARTATE AMINO TRANSFERASE 24 U/L (10-37); BILIRUBIN,TOTAL 0.2 MG/DL (0.1-1.0); BLOOD UREA NITROGEN 15 MG/DL (7-18); BUN/CREATININE RATIO 18.3 (5.4-32.0); CHLORIDE 105 MMOL/L (99-107); CREATININE 0.82 MG/DL (0.60-1.10); GLUCOSE 99 MG/DL (70-104); POTASSIUM 3.9 MMOL/L (3.5-5.1); SODIUM 143 MMOL/L (135-145); TOTAL CARBON DIOXIDE 30.1 MMOL/L (24-32); TOTAL PROTEIN 7.8 G/DL (6.4-8.2); eGFR > 90 ML/MIN
[2021-06-12] MEDS ORDERED: LORazepam 2 mg/ml vial IM ONE (16:50)
[2021-06-12] MEDS ORDERED: diphenhydrAMINE 50 mg/ml inj IM ONE (16:50)
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
[2021-06-12 16:53] LABS: ETHANOL < 0.010 GM/DL (0.0-0.010)
--- NOTE | 2021-06-12 17:05 | NUR ---
Pt had to be held down by staff to administer medications.
[2021-06-12 18:25] LABS: URINE AMPHETAMINE SCREEN POSITIVE (Neg); URINE BARBITUATE SCREEN NEGATIVE (Neg); URINE BENZODIAZEPINES SCREEN NEGATIVE (Neg); URINE CANNABINOID SCREEN POSITIVE (Neg); URINE COCAINE SCREEN NEGATIVE (Neg); URINE METHADONE SCREEN NEGATIVE (Neg); URINE OPIATE SCREEN NEGATIVE (Neg); URINE PHENCYCLIDINE SCREEN NEGATIVE (Neg)
[2021-06-12 18:41] LABS: COLOR,URINE YELLOW (Yellow); UA COLLECTION TYPE CLN CATCH MIDSTREAM
[2021-06-12 18:42] LABS: CLARITY,URINE CLOUDY (Clear); GLUCOSE, URINE NEGATIVE (Neg); KETONES,URINE NEGATIVE (Neg); LEUKOCYTE ESTERASE ,URINE NEGATIVE (Neg); NITRITES, URINE NEGATIVE (Neg); OCCULT BLOOD,URINE NEGATIVE (Neg); PH,URINE 6.5 (4.8-8.0); PROTEIN,URINE NEGATIVE (Neg); UROBILINOGEN,URINE 0.2 E.U/dL (0.2-1.0)
[2021-06-12 18:53] LABS: AMORPHOUS PHOSPHATES 4+; BACTERIA,URINE NONE SEEN /HPF (Neg); MUCUS STRANDS MANY /LPF (Neg); RBC,URINE NONE SEEN /HPF (0-2); SQUAMOUS EPITHELIAL CELL,UR FEW /LPF (FEW); WBC,URINE NONE SEEN /HPF (0-4)
--- NOTE | 2021-06-12 19:09 | NUR ---
packet sent to [facility]
--- NOTE | 2021-06-12 19:15 | NUR ---
Patient receive sleeping; does not appear to be in distress. Patient up to use the restroom and immediately returned to sleep. Physical assessment completed.
--- NOTE | 2021-06-12 21:04 | NUR ---
Patient observed sleeping without difficulty. Self repositioning and resperations even and non labored.
--- NOTE | 2021-06-12 23:33 | NUR ---
Patient appears to be sleeping without difficulty. No respiratory distress presented. Self repositioning.
--- NOTE | 2021-06-13 01:05 | NUR ---
Patient appears to be sleeping without difficulty. Continues to self reposition and no respiratory distress presented.
--- NOTE | 2021-06-13 03:30 | NUR ---
Patient observed sleeping and does not appear to be having difficulty. No respirator distress observed and self repositioning.
--- NOTE | 2021-06-13 05:03 | NUR ---
Patient appears to be sleeping without difficulty. No respiratory distress observed. Patient continues to slef reposition.
[2021-06-13 05:31] VITALS: BP 132/88
--- NOTE | 2021-06-13 09:38 | NUR ---
Pt sitting up eating breakfast saying he wants to leave. Speaking with mother on the phone.
--- NOTE | 2021-06-13 10:19 | NUR ---
Pt speaking with mental health worker. Got agitated and stood close to worker. Security responded and patient sat back down. Verbally aggressive and states [facility].
--- NOTE | 2021-06-13 11:03 | NUR ---
Patient was given his items back. refused to sign discharge and items form
--- NOTE | 2021-06-13 12:08 | NUR ---
Pt discharged. Belongings returned and patient has his own clothing. Given a sack lunch and escorted out by security. Refused to sign d/c instructions.
== END 2021-06-13 10:00 | disposition home or self-care (01) ==
LOC: ER 15:14
DX: F29 Unspecified psychosis not due to a substance or known physiological condition (principal); Z20.822 Contact with and (suspected) exposure to COVID-19; G89.29 Other chronic pain; F41.9 Anxiety disorder, unspecified; F31.9 Bipolar disorder, unspecified; F20.9 Schizophrenia, unspecified; F12.90 Cannabis use, unspecified, uncomplicated; F15.90 Other stimulant use, unspecified, uncomplicated; Z56.0 Unemployment, unspecified; Z59.0 Homelessness; Z72.89 Other problems related to lifestyle; Z90.49 Acquired absence of other specified parts of digestive tract; Z88.0 Allergy status to penicillin; Z88.1 Allergy status to other antibiotic agents; Z88.8 Allergy status to other drugs, medicaments and biological substances; Z79.899 Other long term (current) drug therapy
CPT/HCPCS: 36415; 71045; 80053; 80305; 80320; 81001; 84443; 85025; 87635; 96372; 99284; C9803; J1200; J2060

== ENCOUNTER 2021-07-23 15:04 | Emergency (ER) | payer MEDICARE, MEDICAID ==
[~2021-07-23] VITALS: Ht 180.3 cm; Wt 63.0 kg
[2021-07-23] MEDS ORDERED: acetaminophen 325mg tablet PO ONE (16:30)
--- NOTE | 2021-07-23 16:53 | NUR ---
PT REFUSES TO HAVE COVID 19 TEST PERFORMED STATES HE HAS ALREADY HAD 90 TEST DONE AT [facility].
== END 2021-07-23 19:14 | disposition home or self-care (01) ==
LOC: ER 15:05
DX: J22 Unspecified acute lower respiratory infection (principal); Z20.822 Contact with and (suspected) exposure to COVID-19; R05.9 Cough, unspecified; G89.29 Other chronic pain; F41.9 Anxiety disorder, unspecified; F31.9 Bipolar disorder, unspecified; F20.9 Schizophrenia, unspecified; F12.90 Cannabis use, unspecified, uncomplicated; F15.90 Other stimulant use, unspecified, uncomplicated; Z86.19 Personal history of other infectious and parasitic diseases; Z87.440 Personal history of urinary (tract) infections; Z90.89 Acquired absence of other organs; Z98.890 Other specified postprocedural states; Z72.89 Other problems related to lifestyle; Z56.0 Unemployment, unspecified; Z59.00 Homelessness unspecified; Z88.0 Allergy status to penicillin; Z88.8 Allergy status to other drugs, medicaments and biological substances; Z79.899 Other long term (current) drug therapy
CPT/HCPCS: 87635; 99283; C9803

== ENCOUNTER 2021-10-05 10:19 | Emergency (ER) | payer MEDICARE, MEDICAID ==
[~2021-10-05] VITALS: Ht 180.3 cm; Wt 77.3 kg
[2021-10-05 10:32] VITALS: BP 146/84
== END 2021-10-05 11:40 | disposition home or self-care (01) ==
LOC: ER 10:20
DX: R06.02 Shortness of breath (principal); R05.9 Cough, unspecified; R07.89 Other chest pain; G89.29 Other chronic pain; F17.210 Nicotine dependence, cigarettes, uncomplicated; F12.90 Cannabis use, unspecified, uncomplicated; F15.90 Other stimulant use, unspecified, uncomplicated; Z56.0 Unemployment, unspecified; Z59.00 Homelessness unspecified; Z72.89 Other problems related to lifestyle; Z90.49 Acquired absence of other specified parts of digestive tract; Z88.0 Allergy status to penicillin; Z88.1 Allergy status to other antibiotic agents; Z88.8 Allergy status to other drugs, medicaments and biological substances; Z87.440 Personal history of urinary (tract) infections; Z86.19 Personal history of other infectious and parasitic diseases; Z79.899 Other long term (current) drug therapy
CPT/HCPCS: 99281

== ENCOUNTER 2021-10-08 08:43 | Emergency (ER) | payer MEDICARE, MEDICAID ==
[~2021-10-08] VITALS: Ht 177.8 cm; Wt 77.3 kg
[2021-10-08 08:57] VITALS: BP 129/90
[2021-10-08] MEDS ORDERED: ibuprofen tablet 400 MG TABLET PO ONE (09:20)
[2021-10-08] MEDS ORDERED: diphenhydrAMINE 25mg capsule PO ONE (09:20)
[2021-10-08] MEDS ORDERED: acetaminophen 325mg tablet PO ONE (09:20)
[2021-10-08] MEDS ORDERED: metoclopramide 10mg tablet PO ONE (09:20)
== END 2021-10-08 09:58 | disposition left against medical advice (07) ==
LOC: ER 08:44
DX: R51.9 Headache, unspecified (principal); R50.9 Fever, unspecified; G89.29 Other chronic pain; F41.9 Anxiety disorder, unspecified; F20.9 Schizophrenia, unspecified; F12.90 Cannabis use, unspecified, uncomplicated; F15.90 Other stimulant use, unspecified, uncomplicated; Z86.19 Personal history of other infectious and parasitic diseases; Z87.440 Personal history of urinary (tract) infections; Z90.89 Acquired absence of other organs; Z98.890 Other specified postprocedural states; Z72.89 Other problems related to lifestyle; Z56.0 Unemployment, unspecified; Z59.00 Homelessness unspecified; Z88.0 Allergy status to penicillin; Z88.1 Allergy status to other antibiotic agents; Z88.8 Allergy status to other drugs, medicaments and biological substances; Z79.899 Other long term (current) drug therapy
CPT/HCPCS: 99281

== ENCOUNTER 2021-10-17 10:15 | Emergency (ER) | payer MEDICARE, MEDICAID ==
[~2021-10-17] VITALS: Ht 180.3 cm; Wt 77.3 kg
[2021-10-17] MEDS ORDERED: CYAN100082 PO (10:43)
== END 2021-10-17 12:05 | disposition home or self-care (01) ==
LOC: ER 10:16
DX: Z02.89 Encounter for other administrative examinations (principal); E86.0 Dehydration; G89.29 Other chronic pain; F41.9 Anxiety disorder, unspecified; F31.9 Bipolar disorder, unspecified; F20.9 Schizophrenia, unspecified; F12.90 Cannabis use, unspecified, uncomplicated; F15.90 Other stimulant use, unspecified, uncomplicated; Z86.19 Personal history of other infectious and parasitic diseases; Z87.440 Personal history of urinary (tract) infections; Z90.89 Acquired absence of other organs; Z98.890 Other specified postprocedural states; Z72.89 Other problems related to lifestyle; Z59.00 Homelessness unspecified; Z56.0 Unemployment, unspecified; Z88.0 Allergy status to penicillin; Z88.8 Allergy status to other drugs, medicaments and biological substances; Z79.899 Other long term (current) drug therapy
CPT/HCPCS: 99282

== ENCOUNTER 2021-11-13 14:37 | Emergency (ER) | payer MEDICARE, MEDICAID ==
[~2021-11-13] VITALS: Ht 180.3 cm; Wt 78.2 kg
[~2021-11-13 14:37] MED LIST changes: +CYAN100082 PO
[2021-11-13 14:58] VITALS: BP 126/99
== END 2021-11-13 15:18 | disposition home or self-care (01) ==
LOC: ER 14:38
DX: R06.02 Shortness of breath (principal); R50.9 Fever, unspecified; R05.9 Cough, unspecified; F41.9 Anxiety disorder, unspecified; F31.9 Bipolar disorder, unspecified; F20.9 Schizophrenia, unspecified; F12.90 Cannabis use, unspecified, uncomplicated; F15.90 Other stimulant use, unspecified, uncomplicated; Z86.19 Personal history of other infectious and parasitic diseases; Z87.440 Personal history of urinary (tract) infections; Z90.89 Acquired absence of other organs; Z98.890 Other specified postprocedural states; Z72.89 Other problems related to lifestyle; Z59.00 Homelessness unspecified; Z56.0 Unemployment, unspecified; Z88.0 Allergy status to penicillin; Z88.1 Allergy status to other antibiotic agents; Z88.8 Allergy status to other drugs, medicaments and biological substances; Z79.899 Other long term (current) drug therapy
CPT/HCPCS: 93005; 99283

== ENCOUNTER 2021-11-20 09:03 | Emergency (ER) | payer MEDICARE, MEDICAID ==
[~2021-11-20] VITALS: Ht 177.8 cm; Wt 78.2 kg
[2021-11-20 09:24] VITALS: BP 131/90
== END 2021-11-20 12:19 | disposition home or self-care (01) ==
LOC: ER 09:05
DX: J06.9 Acute upper respiratory infection, unspecified (principal); Z20.822 Contact with and (suspected) exposure to COVID-19; R09.89 Other specified symptoms and signs involving the circulatory and respiratory systems; K30 Functional dyspepsia; R19.7 Diarrhea, unspecified; R05.9 Cough, unspecified; G89.29 Other chronic pain; F41.9 Anxiety disorder, unspecified; F31.9 Bipolar disorder, unspecified; F20.9 Schizophrenia, unspecified; F17.200 Nicotine dependence, unspecified, uncomplicated; F12.90 Cannabis use, unspecified, uncomplicated; F15.90 Other stimulant use, unspecified, uncomplicated; Z86.19 Personal history of other infectious and parasitic diseases; Z87.440 Personal history of urinary (tract) infections; Z90.89 Acquired absence of other organs; Z98.890 Other specified postprocedural states; Z72.89 Other problems related to lifestyle; Z56.0 Unemployment, unspecified; Z59.00 Homelessness unspecified; Z88.0 Allergy status to penicillin; Z88.1 Allergy status to other antibiotic agents; Z88.8 Allergy status to other drugs, medicaments and biological substances; Z79.899 Other long term (current) drug therapy
CPT/HCPCS: 87635; 99283; C9803

== ENCOUNTER 2022-01-08 15:28 | Emergency (ER) | payer MEDICARE, MEDICAID ==
[~2022-01-08] VITALS: Ht 177.8 cm; Wt 63.6 kg
[2022-01-08 15:37] VITALS: BP 122/89
== END 2022-01-08 16:55 | disposition home or self-care (01) ==
LOC: ER 15:29
DX: S61.512A Laceration without foreign body of left wrist, initial encounter (principal); G89.29 Other chronic pain; F41.9 Anxiety disorder, unspecified; F31.9 Bipolar disorder, unspecified; F20.9 Schizophrenia, unspecified; F12.90 Cannabis use, unspecified, uncomplicated; F15.90 Other stimulant use, unspecified, uncomplicated; Z86.19 Personal history of other infectious and parasitic diseases; Z87.440 Personal history of urinary (tract) infections; Z90.89 Acquired absence of other organs; Z98.890 Other specified postprocedural states; Z72.89 Other problems related to lifestyle; Z56.0 Unemployment, unspecified; Z59.00 Homelessness unspecified; Z88.0 Allergy status to penicillin; Z88.1 Allergy status to other antibiotic agents; Z88.8 Allergy status to other drugs, medicaments and biological substances; Z79.899 Other long term (current) drug therapy; X58.XXXA Exposure to other specified factors, initial encounter; Y93.89 Activity, other specified; Y92.89 Other specified places as the place of occurrence of the external cause; Y99.8 Other external cause status
CPT/HCPCS: 12001; 99282

== ENCOUNTER 2022-11-27 12:33 | Emergency (ER) | payer MEDICARE, MEDICAID ==
[~2022-11-27] VITALS: Ht 177.8 cm; Wt 75.9 kg
[2022-11-27 12:51] VITALS: BP 160/101
== END 2022-11-27 16:40 | disposition left against medical advice (07) ==
LOC: ER 12:34
DX: F29 Unspecified psychosis not due to a substance or known physiological condition (principal); Z53.21 Procedure and treatment not carried out due to patient leaving prior to being seen by health care provider
CPT/HCPCS: 99281

== ENCOUNTER 2022-11-30 11:27 | Emergency (ER) | payer MEDICARE, MEDICAID ==
[~2022-11-30] VITALS: Ht 177.8 cm; Wt 75.0 kg
[2022-11-30 15:54] VITALS: BP 170/97
== END 2022-11-30 17:39 | disposition left against medical advice (07) ==
LOC: ER 11:28
DX: F29 Unspecified psychosis not due to a substance or known physiological condition (principal); Z53.21 Procedure and treatment not carried out due to patient leaving prior to being seen by health care provider
CPT/HCPCS: 99281

== ENCOUNTER 2023-05-10 09:34 | Emergency (ER) | payer MEDICARE, MEDICAID ==
[~2023-05-10] VITALS: Ht 177.8 cm; Wt 65.2 kg
[2023-05-10 09:36] VITALS: BP 124/89; PULSE 89; TEMP 98; O2SAT 96
[2023-05-10 10:11] LABS: BASOPHILS % (AUTO) 0.5 % (0-1); EOSINOPHILS # (AUTO) 0.2 X10'3 (0-0.9); EOSINOPHILS % (AUTO) 2.4 % (0-6); HEMOGLOBIN 15.1 g/dl (14.0-17.9); LYMPHOCYTES # (AUTO) 2.4 X10'3 (1.1-4.8); LYMPHOCYTES % (AUTO) 27.9 % (21-51); MEAN CORPUSCULAR HEMOGLOBIN 30.9 PG (27.0-31.0); MEAN CORPUSCULAR HGB CONC 33.6 g/dL (33.0-36.5); MEAN CORPUSCULAR VOLUME 92.1 FL (78-98); MONOCYTES # (AUTO) 1.1 X10'3 (0-0.9); MONOCYTES % (AUTO) 12.8 % (2-12); NEUTROPHILS # (AUTO) 4.9 X10'3 (1.8-7.7); NEUTROPHILS % (AUTO) 56.4 % (42-75); PLATELET COUNT 452 X10'3 (140-440); RED BLOOD COUNT 4.89 X10'6 (4.70-6.10); RED CELL DISTRIBUTION WIDTH 13.6 % (11.5-14.5); WHITE BLOOD COUNT 8.7 X10'3 (4.5-11.0)
[2023-05-10 10:33] LABS: ALANINE AMINOTRANSFERASE 42 U/L (12-78); ALBUMIN 3.7 G/DL (3.4-5.0); ALBUMIN/GLOBULIN RATIO 0.9 (1.1-1.5); ALKALINE PHOSPHATASE 72 IU/L (46-116); ANION GAP 7 (8-16); ASPARTATE AMINO TRANSFERASE 23 U/L (10-37); BILIRUBIN,TOTAL 0.5 MG/DL (0.1-1.0); BLOOD UREA NITROGEN 14 MG/DL (7-18); BUN/CREATININE RATIO 15.6 (10.0-20.0); CALCIUM 8.9 MG/DL (8.5-10.1); CHLORIDE 104 MMOL/L (99-107); GLUCOSE 93 MG/DL (70-104); POTASSIUM 3.1 MMOL/L (3.5-5.1); PRO BRAIN NATRIURETIC PEPTIDE 36 PG/ML (0-125); SODIUM 138 MMOL/L (135-145); TOTAL CARBON DIOXIDE 27.4 MMOL/L (24-32); TOTAL PROTEIN 7.6 G/DL (6.4-8.2); eCRCL 93 ML/MIN; eGFR 90 ML/MIN
[2023-05-10 12:51] VITALS: RESP 16
[2023-05-10] MEDS ORDERED: potassium Cl 20 mEq SR tablet PO ONE (14:15)
[2023-05-10] MEDS ORDERED: IBUP-1984 PO (14:39)
--- NOTE | 2023-05-10 14:47 | NUR ---
pt states he does not want a ct and left
== END 2023-05-10 14:59 | disposition home or self-care (01) ==
LOC: ER 09:34
DX: R42 Dizziness and giddiness (principal); E87.6 Hypokalemia; R51.9 Headache, unspecified; G89.29 Other chronic pain; M54.9 Dorsalgia, unspecified; F31.9 Bipolar disorder, unspecified; F20.9 Schizophrenia, unspecified; F17.200 Nicotine dependence, unspecified, uncomplicated; F12.10 Cannabis abuse, uncomplicated; F15.10 Other stimulant abuse, uncomplicated; Z59.00 Homelessness unspecified; Z56.0 Unemployment, unspecified
CPT/HCPCS: 36415; 71045; 80053; 82948; 83880; 84484; 85025; 93005; 99285

== ENCOUNTER 2023-09-06 17:53 | Emergency (ER) | payer MEDICARE, MEDICAID ==
[~2023-09-06] VITALS: Ht 172.7 cm; Wt 73.1 kg
[2023-09-06 17:59] VITALS: BP 144/95; PULSE 78; RESP 18; TEMP 97.8; O2SAT 96
[2023-09-06 18:44] LABS: BASOPHILS # (AUTO) 0.1 X10'3 (0-0.2); EOSINOPHILS # (AUTO) 0.3 X10'3 (0-0.9); EOSINOPHILS % (AUTO) 3.5 % (0-6); HEMATOCRIT 39.7 % (42.0-52.0); HEMOGLOBIN 13.4 g/dl (14.0-17.9); LYMPHOCYTES # (AUTO) 2.1 X10'3 (1.1-4.8); LYMPHOCYTES % (AUTO) 27.3 % (21-51); MEAN CORPUSCULAR HEMOGLOBIN 31.7 PG (27.0-31.0); MEAN CORPUSCULAR HGB CONC 33.8 g/dL (33.0-36.5); MEAN CORPUSCULAR VOLUME 93.8 FL (78-98); MEAN PLATELET VOLUME 6.4 FL (7.4-10.4); MONOCYTES # (AUTO) 0.9 X10'3 (0-0.9); MONOCYTES % (AUTO) 12.3 % (2-12); NEUTROPHILS # (AUTO) 4.3 X10'3 (1.8-7.7); NEUTROPHILS % (AUTO) 55.9 % (42-75); PLATELET COUNT 491 X10'3 (140-440); RED BLOOD COUNT 4.23 X10'6 (4.70-6.10); RED CELL DISTRIBUTION WIDTH 14.1 % (11.5-14.5); WHITE BLOOD COUNT 7.6 X10'3 (4.5-11.0)
[2023-09-06 18:54] LABS: ALANINE AMINOTRANSFERASE 49 U/L (12-78); ALBUMIN 3.4 G/DL (3.4-5.0); ALBUMIN/GLOBULIN RATIO 0.9 (1.1-1.5); ALKALINE PHOSPHATASE 83 IU/L (46-116); ANION GAP 8 (8-16); ASPARTATE AMINO TRANSFERASE 21 U/L (10-37); BILIRUBIN,TOTAL 0.2 MG/DL (0.1-1.0); BLOOD UREA NITROGEN 10 MG/DL (7-18); BUN/CREATININE RATIO 12.5 (10.0-20.0); CALCIUM 8.6 MG/DL (8.5-10.1); CHLORIDE 105 MMOL/L (99-107); ETHANOL < 10 MG/DL (<10); GLUCOSE 107 MG/DL (70-104); POTASSIUM 3.8 MMOL/L (3.5-5.1); SODIUM 142 MMOL/L (135-145); TOTAL CARBON DIOXIDE 29.1 MMOL/L (24-32); eCRCL 109 ML/MIN; eGFR > 90 ML/MIN
[2023-09-06 19:30] LABS: THYROID STIMULATING HORMONE 0.33 ulU/ml (0.34-4.50)
== END 2023-09-06 19:54 | disposition home or self-care (01) ==
LOC: ER 17:54
DX: F29 Unspecified psychosis not due to a substance or known physiological condition (principal); Z20.822 Contact with and (suspected) exposure to COVID-19; G89.29 Other chronic pain; M54.9 Dorsalgia, unspecified; F31.9 Bipolar disorder, unspecified; F20.9 Schizophrenia, unspecified; F12.10 Cannabis abuse, uncomplicated; F15.10 Other stimulant abuse, uncomplicated; Z59.00 Homelessness unspecified; Z56.0 Unemployment, unspecified; Z88.0 Allergy status to penicillin; Z88.1 Allergy status to other antibiotic agents; Z79.899 Other long term (current) drug therapy
CPT/HCPCS: 36415; 80053; 80320; 84443; 85025; 87811; 99283